=== PATIENT | female | born 1960 | race American Indian/Alaskan Native ===

== ENCOUNTER 2021-08-29 13:55 | Inpatient (IN) | payer MEDICARE ==
[2021-08-29] MEDS: INSULIN GLARGINE 100 UNITS/ML SUB-Q SCH (01:30)
[2021-08-29] MEDS ORDERED: DEXTROSE 50% IN WATER (25GM) 50 ML SYRINGE IV PRN (16:20)
[2021-08-29] MEDS ORDERED: ACETAMINOPHEN 325 MG TAB PO PRN (16:20)
[2021-08-29] MEDS ORDERED: oxyCODONE /ACETAMINOPHEN 5-325MG TAB PO PRN (16:20)
[2021-08-29] MEDS ORDERED: POLYETHYLENE GLYCOL 3350 17 GM POWDER PO PRN (16:30)
[2021-08-29] MEDS ORDERED: hydrALAZINE 20 MG/1 ML INJ IV PRN (16:30)
[2021-08-29] MEDS ORDERED: ONDANSETRON 4 MG ODT TAB PO PRN (16:30)
--- NOTE | 2021-08-29 16:38 | History and Physical Report ---
History of Present Illness Date: 08/29/21 Date of admission: 08/29/2021 Chief Complaint: L BKA History of present illness: 61-year-old female who presented with a diabetic left foot infection which was blistered and having purulent discharge. Patient was admitted and worked up. 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 Dov Bonner. Antibiotics were started. On she underwent a definitive left below the knee amputation with Dr. Dov Bonner. Antibiotics were continued for 3 days post BKA per infectious disease. Her hemoglobin dropped to 5.5 and she was transfused 2 units of packed red blood cells. Hemoglobin is currently at 8.1. Couple days ago prior to admission to rehab her WBCs were elevated at 12.2 which was significantly increased from prior. She also had a slight fever. Recheck of labs prior to admission to rehab show that WBCs have normalized and she has not had another episode of fever. Hemoglobin has improved and stabilized. We will continue to monitor these while she is on the inpatient rehab unit. Unf ortunately prior to admission the patient was not compliant with diabetes management and her hemoglobin A1c was 11.9. During her evaluation I spent roughly 60 minutes with the patient discussing diabetes management, wound care and management, wound healing with diabetes, amputation prognosis, desensitization for phantom pain, timeline and prognosis for obtaining a prosthetic limb and the therapy required to start utilizing the prosthetic limb. We also discussed in detail the requirements for her starting on the acute rehab and the intensity of the program. Patient was agreeable and looking forward to starting so that she could improve and return home. Previously the patient was living in a hotel alone, she will be going back to live with family after discharge. In total, greater than 75 minutes was invested in patient care today with greater than 50% of that time utilize counseling and coordinating care. After the patient was medically stabilized she was transferred for participation in acute inpatient intensive rehabilitation program. Past History Past Medical History: diabetes Past Surgical History: Other (Left BKA) Social history: Lives alone Family history: CAD, diabetes, hypertension, stroke Medications and Allergies Allergies Allergy/AdvReac Type Severity Reaction Status Date / Time No Known Allergies Allergy Verified 08/14/21 15:15 Home Medications Medication Instructions Recorded Confirmed Last Taken Type No Known Home Medications [No 08/17/21 08/17/21 Unknown History Reported Home Medications] Active Meds: Active Medications Acetaminophen (Acetaminophen 325 Mg Tab) 650 mg PO Q6H PRN PRN Reason: Pain MILD(1-3)/Fever >100.5/[place] Bisacodyl (Bisacodyl 10 Mg Rect Supp) 10 mg AL QDAY PRN PRN Reason: Constipation Dextrose (Dextrose 50% In Water (25gm) 50 Ml Syringe) 50 ml IV Q30MIN PRN; Protocol PRN Reason: Hypoglycemia Docusate Sodium (Docusate Sodium 100 Mg Cap) 100 mg PO BID LOS Enoxaparin Sodium (Enoxaparin 40 Mg/0.4 Ml Inj) 40 mg SUB-Q QDAY LOS Famotidine (Famotidine 20 Mg Tab) 20 mg PO QDAY LOS Hydralazine HCl (Hydralazine 20 Mg/1 Ml Inj) 10 mg IV Q4HR PRN PRN Reason: Hypertension Insulin Human Lispro (Insulin Lispro 100 Unit/Ml) 0 unit SUB-Q ACHS LOS; Protocol Ondansetron HCl (Ondansetron 4 Mg Odt Tab) 4 mg PO Q8H PRN PRN Reason: Nausea And Vomiting Oxycodone/Acetaminophen (Oxycodone /Acetaminophen 5-325mg Tab) 1 tab PO Q6H PRN PRN Reason: Pain, Moderate (4-6) Polyethylene Glycol (Polyethylene Glycol 3350 17 Gm Powder) 17 gm PO QDAY PRN PRN Reason: Constipation Review of Systems All systems: negative (ROS negative for 10 systems except as noted below with pertinent positives and negatives.) Constitutional: fever, no weight loss, no weight gain, no chills Ears, nose, mouth and throat: no decreased hearing, no dysphagia Cardiovascular: no chest pain, no rapid/irregular heart beat, no edema Respiratory: no cough, no shortness of breath Gastrointestinal: no abdominal pain, no nausea, no vomiting, no diarrhea Musculoskeletal: no arm numbness/tingling, no low back pain, no leg numbness/tingling Integumentary: wounds, no pruritis Neurological: parathesias, no paralysis, no weakness Psychiatric: no anxiety, no insomnia Endocrine: no polydipsia Exam - Exam Narrative exam: MUSCULOSKELETAL SPECIALTY EXAM CONSTITUTIONAL: Well developed, well nourished, appropriately groomed LYMPHATIC: No appreciable abnormalities palpable in neck RESPIRATORY: Clear to auscultation bilaterally, no increased work of breathing CARDIOVASCULAR: Regular Rate/ Rhythm, no swelling, edema or tenderness in BUE or BLE. Pulses palpable in all extremities. All extremities warm. GI: + bowel sounds, soft, NTTP, nondistended. INTEGUMENTARY: Wound on lateral and medial right foot, surgical wound clean dry and intact with scant drainage at lateral pole serosanguineous in nature. Normal, no lesion, rash, masses or bruising noted in extremities. MUSCULOSKELETAL: Left BKA, otherwise BUE and BLE normal without defect, crepitus, subluxation, effusion, arthritic changes or TTP. BUE 4+/5, good ROM, with normal tone. BLE 4/5 good ROM, with normal tone NEURO: CN 2-12 grossly intact. Sensation intact in all extremities. Reflexes 2+ bilaterally at biceps, brachioradialis and R patella. No clonus at ankle. Coordination intact in BUE. No tremor noted in 4 extremities. POSTURE and GAIT: Sitting posture good. Balance and gait deferred until seen with therapy. PSYCH: Alert, oriented x3, affect appears normal. Insight appears intact. - Constitutional Vitals: 98.5, 87, 18, 100%, 138/67 Assessment and Plan Assessment and plan: Patient was assessed and evaluated for Acute Inpatient Rehab Unit. Due to the patients above-mentioned medical complexity, along with decreased functional mobility and self care, this patient continues to require and be appropriate for a comprehensive, multidisciplinary [id number] rehabilitati on program. These needs cannot be met in an outpatient or other less intensive setting. The patient would continue to benefit from skilled therapy intervention for at least 3 hours per day, five days a week, with techniques specific to the needs of the patient to improve function, activities of daily living, and reintegration into the community. The patient continues to require: -- OT to improve ROM, self-care, and learn use of adaptive equipment -- PT to improve strength and balance, functional transfers, and ambulation with energy conservation techniques to improve functional mobility -- MANAGER OF CUSTOMER BILLING to address cognitive deficits and swallowing ability -- 24 hour RN to ensure and prevent skin breakdown, promote progressive independence while ensuring safety, ensure education regarding medications, and incorporation of the rehabilitation at the bedside -- 24 hour Utilization Management Manager to coordinate this interdisciplinary program, and to manage/prevent complications as a result of the patients medical comorbidities. -Plan of care by day 4 -Weekly team conferences With such a program, there is a reasonable certainty that the goals individualized for this patient can be achieved within the specified length of stay. Left BKA: Patient needs residual limb protector, will contact [facility] for delivery. Continue dressing changes every other day and monitor for any signs of increased drainage, infection or wound dehiscence. Counseled patient on prognosis and timeline for recovery as well as obtaining a prosthesis. Follow- up with surgeon for staple removal Diabetes: Patient continues on carb controlled diet and sliding scale insulin. We will look to attempt to start scheduled insulin based on her usage while she is in-house. Have discussed counseling with dietary choices. Have also discussed issues with wound healing and the importance of monitoring her right foot for any wounds and to have those treated as soon as possible if they should develop. Phantom sensation: Continue working with desensitization, will refrain from starting gabapentin currently as the patient is not having acute neuropathic pain but will look to utilize that if needed in the future. ADL dysfunction: OT will work on improving ability to perform ADLs (including assistive devices) to increase independence and decrease caregiver burden and improve functional transfers and mobility training. Difficulty walking: PT will work on gait training and proper use of assistive devices and advance as appropriate to use of stairs and outside ambulation on uneven surfaces. Unsteadiness on feet: PT will work on improving static and dynamic sitting and standing balance as well as proper use of assistive devices to decrease risk of falls. Abnormality of gait: PT will work to improve safety and efficiency of gait through neuromotor training and gait training along with instruction on proper use of assistive devices. Muscle weakness: PT & OT will work on strengthening exercises to improve functional strength including mixture of closed and open kinetic chain exercises. Debility: PT & OT will work on improving overall functional status to improve participation with ADLs, mobility and social involvement. Fatigue: PT & OT will work on improving endurance through aerobic exercises and therapeutic activity while monitoring patients tolerance for activity and vital signs as needed. DVT ppx: Patient's renal function has been acceptable, will change her to Lovenox Pain: Continue physical modalities in therapy and pain medications as needed to achieve functional pain control. Sleep: Monitor and address as needed. Bowel: Monitor and address as needed. Appetite: Monitor and address as needed. Discharge planning: Pending therapy progress and care plan meeting. Will continue discussion with therapy team, SW, patient and family. Restrictions/ Precautions: Falls, wound complication WB status: FWB on RLE, NWB on LLE Functional Hx: ADLs: Independent but went downhill recently with the infection Cognition: Independent Mobility: No AD previously but was crawling around with the infection Barriers to Discharge: Decreased mobility and ability to perform self care, balance deficits, weakness Estimated Length of Stay: 10-14 days Discharge Destination: Home with family Patient has undergone a left BKA and thus cannot safely stand to perform MR ADLs safely with any device. She will need a wheelchair at discharge. She is capable of utilizing the wheelchair and has expressed no contraindications to utilizing the wheelchair in the home environment. We will continue to work with her to improve her ability to mobilize herself in the wheelchair in order to provide her greater independence with performing her MRADLs. POST ADMISSION PHYSICIAN EVALUATION I have examined the patient and find that functional status, medical condition and appropriateness for IRF admission are essentially unchanged from those described in the preadmission screening. Will monitor for worsening wounds, surgical wound dehiscence/infection, need for prosthetics and residual limb protector, phantom sensation/pain, DVT/PE, bowel and bladder complications and complications due to diabetes, questionable hypertension and electrolyte abnormalities. Will attempt to avoid occurrence of these issues or treat them if they present themselves.
[2021-08-29] MEDS: DOCUSATE SODIUM 100 MG CAP PO SCH (22:38)
[2021-08-30] MEDS: INSULIN LISPRO 100 UNIT/ML SUB-Q SCH ×7 (01:30→21:19)
[2021-08-30] MEDS: INSULIN GLARGINE 100 UNITS/ML SUB-Q SCH ×2 (01:30→21:20)
[2021-08-30 05:08] LABS: Basophils # (Auto) 0.1 K/mm3 (0.0-0.1); Eosinophils # (Auto) 0.1 K/mm3 (0.0-0.4); Hematocrit 22.6 % (30.3-42.9); Hemoglobin 7.3 gm/dl (10.1-14.3); Lymphocytes # (Auto) 1.2 K/mm3 (1.2-5.4); Lymphocytes % (Auto) 16.1 % (13.4-35.0); Mean Corpuscular HGB Conc 32 % (30-34); Mean Corpuscular Volume 87 fl (79-97); Monocytes # (Auto) 0.5 K/mm3 (0.0-0.8); Monocytes % (Auto) 7.2 % (0.0-7.3); Platelet Count 230 K/mm3 (140-440); Red Cell Distribution Width 17.5 % (13.2-15.2)
[2021-08-30 05:22] LABS: Alanine Aminotransferase 16 units/L (7-56); Albumin 2.2 g/dL (3.9-5); Blood Urea Nitrogen 24 mg/dL (7-17); Calcium 8.3 mg/dL (8.4-10.2); Hemolysis Index 0
[2021-08-30 05:54] LABS: BUN/Creatinine Ratio 34
[2021-08-30] MEDS: ENOXAPARIN 40 MG/0.4 ML INJ SUB-Q SCH ×2 (08:30→11:40)
[2021-08-30] MEDS: FAMOTIDINE 20 MG TAB PO SCH ×2 (08:30→11:40)
[2021-08-30] MEDS: DOCUSATE SODIUM 100 MG CAP PO SCH ×2 (11:40→21:28)
[2021-08-31] MEDS: INSULIN LISPRO 100 UNIT/ML SUB-Q SCH ×5 (09:44→21:42)
[2021-08-31] MEDS: ENOXAPARIN 40 MG/0.4 ML INJ SUB-Q SCH (09:45)
[2021-08-31] MEDS: FAMOTIDINE 20 MG TAB PO SCH ×2 (09:45→09:46)
[2021-08-31] MEDS: DOCUSATE SODIUM 100 MG CAP PO SCH ×2 (09:46→21:43)
--- NOTE | 2021-08-31 11:48 | Event Note ---
Date: 08/31/21 BUN/Cr still elevated, will give gentle IVF and recheck BMP in AM. Hgb seems to be trending down, recheck in AM. BP continues to have episodes of elevation, monitor and look to possibly start antihypertensive. GLU seems a little better on scheduled Lantus, monitor and adjust.
[2021-08-31] MEDS ORDERED: SODIUM CHLORIDE 0.9% 1000 ML 1,000 ML IV SCH (12:40)
[2021-08-31] MEDS ORDERED: LOPERAMIDE 2 MG CAP PO PRN (15:07)
[2021-08-31] MEDS: INSULIN GLARGINE 100 UNITS/ML SUB-Q SCH (21:42)
[2021-09-01 07:58] LABS: Blood Urea Nitrogen 20 mg/dL (7-17); Calcium 8.3 mg/dL (8.4-10.2); Hemolysis Index 0
[2021-09-01 08:07] LABS: BUN/Creatinine Ratio 33
[2021-09-01 08:13] LABS: Hematocrit 23.4 % (30.3-42.9); Hemoglobin 7.6 gm/dl (10.1-14.3); Mean Corpuscular HGB Conc 33 % (30-34); Mean Corpuscular Volume 88 fl (79-97); Platelet Count 224 K/mm3 (140-440); Red Blood Count 2.66 M/mm3 (3.65-5.03); Red Cell Distribution Width 18.6 % (13.2-15.2)
--- NOTE | 2021-09-01 08:36 | IRU Plan of Care ---
Interdisciplinary Plan of Care - IPOC IRU INTERDISCIPLINARY PLAN: [facility] Inpatient Rehab Unit Plan of Care IRU Interdisciplinary Care Plan Start: 08/30/21 12:16 Freq: Status: Active Protocol: Document 08/31/21 15:40 TH (Rec: 08/31/21 15:42 TH [id number]) IRU Interdisciplinary Care Plan Therapy Services Therapy Services Will Include: Physical Therapy,Occupational Query Text:Patient will be seen for a Therapy minimum of 3 hours of daily therapy 5 out of 7 days a week. Therapy intensity may be adjusted within a 7 consecutive day period to effectively serve the individual needs of the patient. Treatment Frequency/Intensity/Duration Treatment Frequency 5x/week Treatment Intensity 3 hours per day Treatment Duration 7-10 days Problem Area: Eating/Swallowing Eating/Swallowing Outcomes Eating/Swallowing Interventions Problem Area: Bathing/Grooming Bathing/Grooming Outcomes Improve [place] w/ Bathing Bathing/Grooming Interventions ADL Training,Use of Assistive Devices,Therapeutic Exercise, Therapeutic Activity,Balance Work,Activity Tolerance Work, Patient/Caregiver Education Problem Area: Dressing Dressing Outcomes Improve [place] w/ UB Dressing,Improve [place] w/ LB Dressing Dressing Outcomes Improve [place] w/ UB Dressing,Improve [place] w/ LB Dressing Problem Area: Mobility Mobility Outcomes Improve [place] w/ Bed Mobility,Improve [place] w/ Ambulation,Improve [place] w/ Wheelchair Mobility Interventions Therapeutic Exercise, Neuromuscular Re-Ed.,Use of Assistive Devices,Patient/ Caregiver Education,Gait Training,W/C Mobility Work Problem Area: Transfers Transfers Outcomes Improve [place] w/ Bed Transfers,Improve [place] w/ Toilet Transfers,Improve [place] w/ Tub/Shower Transfers,Improve [place] w/ Car Transfers Transfers Interventions Transfer Training,Therapeutic Exercise,Neuromuscular Re- Education,Activity Tolerance Work,Use of Assistive Devices, Patient/Caregiver Education Problem Area: Bowel/Bladder Managment Bowel/Bladder Outcomes Continent of Bladder,Continent of Bowel,Remain free of UTI Bowel/Bladder Interventions Bladder Training Program,Bowel Training Program,Patient/ Caregiver Education Problem Area: Toileting Toileting Outcomes Improve [place] w/ Toileting Toileting Interventions ADL Training,Balance Work,Use of Assistive Devices,Patient/ Caregiver Education Problem Area: Nutrition Nutrition Outcomes Nutrition Interventions Problem Area: Comprehension Comprehension Outcomes Comprehension Interventions Problem Area: Expression Expression Outcomes Expression Interventions Problem Area: Problem Solving Problem Solving Outcomes Problem Solving Interventions Problem Area: Memory Memory Outcomes Memory Interventions Problem Area: Pain Management Pain Management Outcomes Demonstrate/Verbalize Pain Strategies Pain Management Interventions Medication Management,Use of Devices/Modalities (TENS, hot pack, cold pack, etc.), Positioning/Turning,Patient/ Caregiver Education Problem Area: Knowledge Deficits Knowledge Deficits Outcomes Verbalize Precautions Knowledge Deficits Interventions Disease/Injury/Sx. Intervention Education, Medication Use Education,Body Mechanics/Joint Protection Education,Disease Management Education,Health Maintainence Education,Safety Education, Energy Conservation Education Problem Area: Skin/Tissue Integrity Skin/Tissue Integrity Outcomes Exhibit Healing of Wound/ Incision,Demonstrate Understanding of Pressure Relief,Demonstrate Understanding of Self Wound Care Skin/Tissue Integrity Interventions Skin/Wound Care,Positioning/ Turning Problem Area: Social Interaction Social Interaction Outcomes Social Interaction Interventions Problem Area: Adjustment to Disability Adjustment to Disability Outcomes Adjustment to Disability Interventions Problem Area: Discharge Concerns Discharge Concerns Outcomes Discharge w/ Necessary Equipment,Have Home Health/ Outpatient Services Discharge Concerns Interventions Discharge Planning,Equipment Assessment, Acquisition and Placement,Family/Caregiver Training Problem Area: Community Reintegration Community Reintegration Outcomes Community Reintegration Interventions Problem Area: Home Management Home Management Outcomes Improve [place] w/ Home Management Home Management Interventions Meal Preparation,Clothing Care ,Activity Tolerance Work, Patient/Caregiver Education Problem Area: Safety Safety Outcomes Provide Safe Environment Safety Interventions Identify Fall Risk,[place] Pt. to Environment,Reduce Environmental Hazards Problem Area: Medication Education Medication Education Outcomes Patient/Caregiver will Verbalize Understanding of Medications Medication Education Interventions Explain Administration/Side Effects/Interactions Problem Area: Diabetes Education Diabetes Education Outcomes Demonstrate Knowledge of Resources Availlable in Diabetic Ed. Folder Diabetes Education Interventions Discuss Pathophysiology of Diabetes Problem Area: Oxygenation Oxygenation Outcomes Oxygenation Interventions Problem Area: Cardiovascular Cardiovascular Outcomes Cardiovascular Interventions Physician Only Medical Prognosis and Rehabilitation Good rehab potential, good medical prognosis Potential (Completed by Physician) Interdisciplinary Problem List Interdisciplinary Problem List Interdisciplinary Problem List Impaired Bathing/Grooming, Query Text:Answers will Trigger Problems Impaired Dressing,Impaired and Outcomes on Worklist. Mobility,Impaired Transfers, Impaired Bladder/Bowel Management,Impaired Toileting, Pain Management,Impaired Skin/ Tissue Integrity,Adjustment to Disability,Discharge Concerns ,Impaired Home Management, Impaired Safety,Medications Education,Diabetes Education This plan of care has been developed based on the findings from the pre- admission assessment, post admission physician evaluation, information gathered from the assessments from all therapy disciplines and other pertinent clinicians. The plan of care has been reviewed and discussed in collaboration with the interdisciplinary team. The plan of care will be reviewed and updated at least weekly.
--- NOTE | 2021-09-01 08:42 | Progress Note ---
Subjective Date of service: 09/01/21 Principal diagnosis: L BKA Interval history: 61-year-old female who presented with a diabetic left foot infection which was blistered and having purulent discharge. Patient was admitted and worked up. 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 Dov Bonner. Antibiotics were started. On she underwent a definitive left below the knee amputation with Dr. Dov Bonner. Antibiotics were continued for 3 days post BKA per infectious disease. Her hemoglobin dropped to 5.5 and she was transfused 2 units of packed red blood cells. Hemoglobin is currently at 8.1. Couple days ago prior to admission to rehab her WBCs were elevated at 12.2 which was significantly increased from prior. She also had a slight fever. Recheck of labs prior to admission to rehab show that WBCs have normalized and she has not had another episode of fever. Hemoglobin has improved and stabilized. We will continue to monitor these while she is on the inpatient rehab unit. Unfortunately prior to admission the patient was not compliant with diabetes management and her hemoglobin A1c was 11.9. During her evaluation I spent roughly 60 minutes with the patient discussing diabetes management, wound care and management, wound healing with diabetes, amputation prognosis, desensitization for phantom pain, timeline and prognosis for obtaining a prosthetic limb and the therapy required to start utilizing the prosthetic limb. We also discussed in detail the requirements for her starting on the acute rehab and the intensity of the program. Patient was agreeable and looking forward to starting so that she could improve and return home. Previously the patient was living in a hotel alone, she will be going back to live with family after discharge. In total, greater than 75 minutes was invested in patient care today with greater than 50% of that time utilize counseling and coordinating care. After the patient was medically stabilized she was transferred for participation in acute inpatient intensive rehabilitation program. Interval History: Patient is participating in therapy and making reasonable progress. Taking rest breaks as needed. +BM, slowing down some as the patient was having multiple loose stools previously, Imodium available. Denies uncontrolled pain, palpitations, dyspnea, cough, N/V, or joint pain. Left BKA: Continue to monitor, clean dry and intact currently. No signs of wound dehiscence or infection Right foot wound: Continue to change dressing daily and monitor for any signs of worsening infection. Appears stable currently Diabetes: Patient tolerating low-dose of Lantus, have reduced sliding scale insulin. Discussed diabetes and importance of checking her skin for wounds going forward and adhering to a controlled carbohydrate and insulin regimen. A1c at admission was 11.9 Borderline hypertension: Patient having episodes periodically of hypertension but is normally well within limits. Discussing this with the patient it seems that she does get anxious at times and this might be part of the issue. Did discuss with her that we will look to start an antihypertensive if she continues to have elevations and I cannot find another cause for it. Volume depletion: Gentle IV fluids started with good results. Encouraged the patient to continue drinking plenty of water. Will monitor Anemia, combined acute blood loss and chronic disease: Combination of chronic disease and acute blood loss. Labs reviewed from acute care side. May add a B12 and folate to her next set of labs that we obtain. ADL and mobility deficits: Continue working with therapy to improve patient's ability to perform mobility and ADLs as independently as possible. She is utilizing a sliding board transfer to the wheelchair and is able to mobilize herself in the wheelchair. Working on the ability to be able to perform a stand pivot transfer and hopefully will do that over the next couple of days followed by taking steps in the parallel bar and then with a rolling walker. All records, vitals, labs and medications were reviewed. No other issues per patient, nursing or therapy. In total, greater than 37 minutes was invested in patient care today with greater than 20 minutes of that time counseling the patient on her medical conditions and prognosis of her condition as well as expectations for discharge. Objective - Exam Narrative Exam: MUSCULOSKELETAL SPECIALTY EXAM CONSTITUTIONAL: Well developed, well nourished, appropriately groomed RESPIRATORY: Clear to auscultation bilaterally, no increased work of breathing CARDIOVASCULAR: Regular Rate/ Rhythm, no swelling, edema or tenderness in BUE or BLE. All extremities warm. GI: + bowel sounds, soft, NTTP, nondistended. INTEGUMENTARY: Wound on lateral and medial right foot, surgical wound clean dry and intact with scant drainage at lateral pole, serosanguineous in nature. Otherwise normal, no lesion, rash, masses or bruising noted in extremities. MUSCULOSKELETAL: Left BKA, otherwise BUE and BLE normal without defect, crepitus, subluxation, effusion, arthritic changes or TTP. BUE 4+/5, good ROM, with normal tone. BLE 4/5 good ROM, with normal tone NEURO: CN 2-12 grossly intact. Sensation intact in all extremities. Coordination intact in BUE. No tremor noted in 4 extremities. POSTURE and GAIT: Sitting posture good. Balance and gait deferred until seen with therapy. PSYCH: Alert, oriented x3, affect appears normal. Insight appears intact. - Constitutional Vitals: Vital Signs - 12hr 08/31/21 09/01/21 22:50 08:16 Temperature 97.9 F Pulse Rate 82 Respiratory 16 Rate Blood Pressure 139/69 O2 Sat by Pulse 98 98 Oximetry - Allied health notes Allied health notes reviewed: nursing, PT, OT - Labs CBC & Chem 7: 09/01/21 07:19 09/01/21 07:19 Labs: Laboratory Results - last 72 hr 08/30/21 08/30/21 08/30/21 04:19 04:19 07:23 WBC 7.5 RBC 2.60 L Hgb 7.3 L Hct 22.6 L MCV 87 MCH 28 MCHC 32 RDW 17.5 H Plt Count 230 Lymph % (Auto) 16.1 [place] % (Auto) 7.2 Eos % (Auto) 1.0 Baso % (Auto) 1.0 Lymph # (Auto) 1.2 [place] # (Auto) 0.5 Eos # (Auto) 0.1 Baso # (Auto) 0.1 Seg Neutrophils % 74.7 H Seg Neutrophils # 5.6 Sodium 142 Potassium 4.3 Chloride 106.4 Carbon Dioxide 29 Anion Gap 11 BUN 24 H Creatinine 0.7 Estimated GFR > 60 BUN/Creatinine Ratio 34 Glucose 181 H POC Glucose 156 H Calcium 8.3 L Total Bilirubin 0.20 AST 16 ALT 16 Alkaline Phosphatase 81 Total Protein 7.1 Albumin 2.2 L Albumin/Globulin Ratio 0.4 08/30/21 08/30/21 08/30/21 12:00 16:25 21:17 WBC RBC Hgb Hct MCV MCH MCHC RDW Plt Count Lymph % (Auto) [place] % (Auto) Eos % (Auto) Baso % (Auto) Lymph # (Auto) [place] # (Auto) Eos # (Auto) Baso # (Auto) Seg Neutrophils % Seg Neutrophils # Sodium Potassium Chloride Carbon Dioxide Anion Gap BUN Creatinine Estimated GFR BUN/Creatinine Ratio Glucose POC Glucose 155 H 163 H 168 H Calcium Total Bilirubin AST ALT Alkaline Phosphatase Total Protein Albumin Albumin/Globulin Ratio 07/03/22 07/03/22 07/03/22 08:31 11:57 16:07 WBC RBC Hgb Hct MCV MCH MCHC RDW Plt Count Lymph % (Auto) [place] % (Auto) Eos % (Auto) Baso % (Auto) Lymph # (Auto) [place] # (Auto) Eos # (Auto) Baso # (Auto) Seg Neutrophils % Seg Neutrophils # Sodium Potassium Chloride Carbon Dioxide Anion Gap BUN Creatinine Estimated GFR BUN/Creatinine Ratio Glucose POC Glucose 88 151 H 173 H Calcium Total Bilirubin AST ALT Alkaline Phosphatase Total Protein Albumin Albumin/Globulin Ratio 08/31/21 09/01/21 09/01/21 21:04 07:19 07:19 WBC 4.9 RBC 2.66 L Hgb 7.6 L Hct 23.4 L MCV 88 MCH 29 MCHC 33 RDW 18.6 H Plt Count 224 Lymph % (Auto) [place] % (Auto) Eos % (Auto) Baso % (Auto) Lymph # (Auto) [place] # (Auto) Eos # (Auto) Baso # (Auto) Seg Neutrophils % Seg Neutrophils # Sodium 140 Potassium 3.9 Chloride 104.6 Carbon Dioxide 29 Anion Gap 10 BUN 20 H Creatinine 0.6 Estimated GFR > 60 BUN/Creatinine Ratio 33 Glucose 80 POC Glucose 160 H Calcium 8.3 L Total Bilirubin AST ALT Alkaline Phosphatase Total Protein Albumin Albumin/Globulin Ratio 09/01/21 08:14 WBC RBC Hgb Hct MCV MCH MCHC RDW Plt Count Lymph % (Auto) [place] % (Auto) Eos % (Auto) Baso % (Auto) Lymph # (Auto) [place] # (Auto) Eos # (Auto) Baso # (Auto) Seg Neutrophils % Seg Neutrophils # Sodium Potassium Chloride Carbon Dioxide Anion Gap BUN Creatinine Estimated GFR BUN/Creatinine Ratio Glucose POC Glucose 76 Calcium Total Bilirubin AST ALT Alkaline Phosphatase Total Protein Albumin Albumin/Globulin Ratio Assessment and Plan Left BKA: Patient needs residual limb protector, will contact [facility] for delivery. Continue dressing changes every other day and monitor for any signs of increased drainage, infection or wound dehiscence. Counseled patient on prognosis and timeline for recovery as well as obtaining a prosthesis. Follow- up with surgeon for staple removal Diabetes: Patient continues on carb controlled diet and sliding scale insulin. Have discussed counseling with dietary choices. Have also discussed issues with wound healing and the importance of monitoring her right foot for any wounds and to have those treated as soon as possible if they should develop. Have started long-acting insulin and reduce the dose of the sliding scale. Will monitor and attempt to control her glucose as closely as possible. Right foot wound, diabetic and traumatic in nature: Continue wound care with dressing changes daily, monitor for any signs of infection or need to start antibiotics. Have counseled the patient to closely monitor this wound as well as any future wounds due to the high risk of her obtaining another amputation with diabetes and new foot wound. Phantom sensation: Continue working with desensitization, will refrain from starting gabapentin currently as the patient is not having acute neuropathic pain but will look to utilize that if needed in the future. Anemia: Appears to be anemia of chronic disease and acute blood loss mixed. She is normocytic. Labs from the acute care side on 08/25 show that the iron is within normal limits at 51, TIBC slightly low at 218 and ferritin elevated at 436. We will add a vitamin B12 and folate with our next blood draw Volume depletion: Responded well to 1 L of gentle IV fluids. We will continue to monitor the patient's intake and look to repeat IV fluids if needed. Did encourage her to continue drinking water. ADL dysfunction: OT will work on improving ability to perform ADLs (including assistive devices) to increase independence and decrease caregiver burden and improve functional transfers and mobility training. Difficulty walking: PT will work on gait training and proper use of assistive devices and advance as appropriate to use of stairs and outside ambulation on uneven surfaces utilizing a rolling walker and safety awareness due to left BKA. Unsteadiness on feet: PT will work on improving static and dynamic sitting and standing balance as well as proper use of assistive devices to decrease risk of falls, have discussed with patient the likelihood that she will fall due to f orgetting that she has a left BKA and getting up . Abnormality of gait: PT will work to improve safety and efficiency of gait through neuromotor training and gait training along with instruction on proper use of assistive devices. Will need further training once patient receives left prosthesis Muscle weakness: PT & OT will work on strengthening exercises to improve functional strength including mixture of closed and open kinetic chain exercises. Debility: PT & OT will work on improving overall functional status to improve participation with ADLs, mobility and social involvement. Fatigue: PT & OT will work on improving endurance through aerobic exercises and therapeutic activity while monitoring patients tolerance for activity and vital signs as needed. DVT ppx: Patient's renal function has been acceptable, will change her to Lovenox Pain: Continue physical modalities in therapy and pain medications as needed to achieve functional pain control. Sleep: Monitor and address as needed. Bowel: Monitor and address as needed. Appetite: Monitor and address as needed. Discharge planning: Pending therapy progress and care plan meeting. Will continue discussion with therapy team, SW, patient and family. Restrictions/ Precautions: Falls, wound complication WB status: FWB on RLE, NWB on LLE Functional Hx: ADLs: Independent but went downhill recently with the infection Cognition: Independent Mobility: No AD previously but was crawling around with the infection Barriers to Discharge: Decreased mobility and ability to perform self care, balance deficits, weakness Estimated Length of Stay: 10-14 days Discharge Destination: Home with family Patient has undergone a left BKA and thus cannot safely stand to perform MR ADLs safely with any device. She will need a wheelchair at discharge. She is capable of utilizing the wheelchair and has expressed no contraindications to utilizing the wheelchair in the home environment. We will continue to work with her to improve her ability to mobilize herself in the wheelchair in order to provide her greater independence with performing her MRADLs.
[2021-09-01] MEDS: INSULIN LISPRO 100 UNIT/ML SUB-Q SCH ×4 (09:03→22:00)
[2021-09-01] MEDS: FAMOTIDINE 20 MG TAB PO SCH ×2 (09:04→09:14)
[2021-09-01] MEDS: ENOXAPARIN 40 MG/0.4 ML INJ SUB-Q SCH (09:04)
[2021-09-01] MEDS: INSULIN GLARGINE 100 UNITS/ML SUB-Q SCH (22:00)
[2021-09-02] MEDS: FAMOTIDINE 20 MG TAB PO SCH ×2 (07:36→10:27)
[2021-09-02] MEDS: INSULIN LISPRO 100 UNIT/ML SUB-Q SCH ×4 (08:10→22:43)
[2021-09-02] MEDS: ENOXAPARIN 40 MG/0.4 ML INJ SUB-Q SCH (10:29)
--- NOTE | 2021-09-02 12:02 | Progress Note ---
Subjective Date of service: 09/02/21 Principal diagnosis: L BKA Interval history: 61-year-old female who presented with a diabetic left foot infection which was blistered and having purulent discharge. Patient was admitted and worked up. 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 Dov Bonner. Antibiotics were started. On she underwent a definitive left below the knee amputation with Dr. Dov Bonner. Antibiotics were continued for 3 days post BKA per infectious disease. Her hemoglobin dropped to 5.5 and she was transfused 2 units of packed red blood cells. Hemoglobin is currently at 8.1. Couple days ago prior to admission to rehab her WBCs were elevated at 12.2 which was significantly increased from prior. She also had a slight fever. Recheck of labs prior to admission to rehab show that WBCs have normalized and she has not had another episode of fever. Hemoglobin has improved and stabilized. We will continue to monitor these while she is on the inpatient rehab unit. Unfortunately prior to admission the patient was not compliant with diabetes management and her hemoglobin A1c was 11.9. During her evaluation I spent roughly 60 minutes with the patient discussing diabetes management, wound care and management, wound healing with diabetes, amputation prognosis, desensitization for phantom pain, timeline and prognosis for obtaining a prosthetic limb and the therapy required to start utilizing the prosthetic limb. We also discussed in detail the requirements for her starting on the acute rehab and the intensity of the program. Patient was agreeable and looking forward to starting so that she could improve and return home. Previously the patient was living in a hotel alone, she will be going back to live with family after discharge. In total, greater than 75 minutes was invested in patient care today with greater than 50% of that time utilize counseling and coordinating care. After the patient was medically stabilized she was transferred for participation in acute inpatient intensive rehabilitation program. Interval History: Patient is participating in therapy and making slow progress. Taking rest breaks as needed. +BM, slowing down some as the patient was having multiple loose stools previously, Imodium available. Patient is currently having incontinent episodes both bowel and bladder. Is not wanting to transfer to the commode but is instead requesting to use bedpan. Denies uncontrolled pain, palpitations, dyspnea, cough, N/V, or joint pain. Left BKA: Continue to monitor, clean dry and intact currently. No signs of wound dehiscence or infection Right foot wound: Continue to change dressing daily and monitor for any signs of worsening infection. Appears stable currently Diabetes: Patient tolerating low-dose of Lantus, have reduced sliding scale insulin. Discussed diabetes and importance of checking her skin for wounds going forward and adhering to a controlled carbohydrate and insulin regimen. A1c at admission was 11.9 Borderline hypertension: Patient having episodes periodically of hypertension but is normally well within limits. Reasonable blood pressure today. Did discuss with her that we will look to start an antihypertensive if she continues to have elevations and I cannot find another cause for it. Volume depletion: Gentle IV fluids with good results. Encouraged the patient to continue drinking plenty of water. Will monitor, recheck labs tomorrow Anemia, combined acute blood loss and chronic disease: Combination of chronic disease and acute blood loss. Labs reviewed from acute care side. May add a B12 and folate to her next set of labs that we obtain. ADL and mobility deficits: Continue working with therapy to improve patient's ability to perform mobility and ADLs as independently as possible. She is utilizing a sliding board transfer to the wheelchair and is able to mobilize herself in the wheelchair. Working on the ability to be able to perform a stand pivot transfer and hopefully will do that over the next couple of days followed by taking steps in the parallel bar and then with a rolling walker. All records, vitals, labs and medications were reviewed. No other issues per patient, nursing or therapy. Discussed during team conference. Patient is making slow progress and is oftentimes wanting to think about doing things for prolonged period of time before attempting them. Peers that she does have capability of doing some of the task but we are questioning whether or not there may have been cognitive issue from before. We will continue working with the patient and we have all informed her that she will need to put forth her best effort with therapy otherwise we will be required to discharge her home or to a care home fa cility. At this point she is not able to provide for herself and would need to go to a care home facility. In total, greater than 39 minutes was invested in patient care today including greater than 50% that time counseling coordinating care with the patient, therapy and nursing. Objective - Exam Narrative Exam: MUSCULOSKELETAL SPECIALTY EXAM CONSTITUTIONAL: Well developed, well nourished, appropriately groomed RESPIRATORY: Clear to auscultation bilaterally, no increased work of breathing CARDIOVASCULAR: Regular Rate/ Rhythm, no swelling, edema or tenderness in BUE or BLE. All extremities warm. GI: + bowel sounds, soft, NTTP, nondistended. INTEGUMENTARY: Wound on lateral and medial right foot, surgical wound clean dry and intact with scant drainage at lateral pole, serosanguineous in nature. Otherwise normal, no lesion, rash, masses or bruising noted in extremities. MUSCULOSKELETAL: Left BKA, otherwise BUE and BLE normal without defect, crepitus, subluxation, effusion, arthritic changes or TTP. BUE 4+/5, good ROM, with normal tone. BLE 4/5 good ROM, with normal tone NEURO: CN 2-12 grossly intact. Sensation intact in all extremities. Coordination intact in BUE. No tremor noted in 4 extremities. POSTURE and GAIT: Sitting posture good. Balance and gait deferred until seen with therapy, currently unable to stand or ambulate. PSYCH: Alert, oriented x3, affect appears normal. Insight appears intact. - Constitutional Vitals: Vital Signs - 12hr 09/02/21 09/02/21 09/02/21 01:17 07:59 08:11 Temperature 98.6 F Pulse Rate 81 Blood Pressure 138/65 O2 Sat by Pulse 98 98 98 Oximetry - Allied health notes Allied health notes reviewed: nursing, PT, OT - Labs CBC & Chem 7: 09/01/21 07:19 09/01/21 07:19 Labs: Laboratory Results - last 72 hr 08/30/21 08/30/21 08/30/21 12:00 16:25 21:17 WBC RBC Hgb Hct MCV MCH MCHC RDW Plt Count Sodium Potassium Chloride Carbon Dioxide Anion Gap BUN Creatinine Estimated GFR BUN/Creatinine Ratio Glucose POC Glucose 155 H 163 H 168 H Calcium 08/31/21 08/31/21 08/31/21 08:31 11:57 16:07 WBC RBC Hgb Hct MCV MCH MCHC RDW Plt Count Sodium Potassium Chloride Carbon Dioxide Anion Gap BUN Creatinine Estimated GFR BUN/Creatinine Ratio Glucose POC Glucose 88 151 H 173 H Calcium 08/31/21 09/01/21 09/01/21 21:04 07:19 07:19 WBC 4.9 RBC 2.66 L Hgb 7.6 L Hct 23.4 L MCV 88 MCH 29 MCHC 33 RDW 18.6 H Plt Count 224 Sodium 140 Potassium 3.9 Chloride 104.6 Carbon Dioxide 29 Anion Gap 10 BUN 20 H Creatinine 0.6 Estimated GFR > 60 BUN/Creatinine Ratio 33 Glucose 80 POC Glucose 160 H Calcium 8.3 L 09/01/21 09/01/21 09/01/21 08:14 11:58 16:35 WBC RBC Hgb Hct MCV MCH MCHC RDW Plt Count Sodium Potassium Chloride Carbon Dioxide Anion Gap BUN Creatinine Estimated GFR BUN/Creatinine Ratio Glucose POC Glucose 76 132 H 189 H Calcium 09/01/21 09/02/21 20:56 07:40 WBC RBC Hgb Hct MCV MCH MCHC RDW Plt Count Sodium Potassium Chloride Carbon Dioxide Anion Gap BUN Creatinine Estimated GFR BUN/Creatinine Ratio Glucose POC Glucose 160 H 70 Calcium Assessment and Plan Left BKA: Patient needs residual limb protector, will contact [facility] ([facility] for delivery. Continue dressing changes every other day and monitor for any signs of increased drainage, infection or wound dehiscence. Counseled patient on prognosis and timeline for recovery as well as obtaining a prosthesis. Follow- up with surgeon for staple removal Diabetes: Patient continues on carb controlled diet and sliding scale insulin. Have discussed counseling with dietary choices. Have also discussed issues with wound healing and the importance of monitoring her right foot for any wounds and to have those treated as soon as possible if they should develop. Have started long-acting insulin and reduce the dose of the sliding scale. Will monitor and attempt to control her glucose as closely as possible. Doing better with long-acting insulin. Right foot wound, diabetic and traumatic in nature: Continue wound care with dressing changes daily, monitor for any signs of infection or need to start antibiotics. Have counseled the patient to closely monitor this wound as well as any future wounds due to the high risk of her obtaining another amputation with diabetes and new foot wound. Phantom sensation: Continue working with desensitization, will refrain from starting gabapentin currently as the patient is not having acute neuropathic pain but will look to utilize that if needed in the future. Anemia: Appears to be anemia of chronic disease and acute blood loss mixed. She is normocytic. Labs from the acute care side on 08/25 show that the iron is within normal limits at 51, TIBC slightly low at 218 and ferritin elevated at 436. We will add a vitamin B12 and folate with our next blood draw Volume depletion: Responded well to 1 L of gentle IV fluids. We will continue to monitor the patient's intake and look to repeat IV fluids if needed. Did encourage her to continue drinking water. ADL dysfunction: OT will work on improving ability to perform ADLs (including assistive devices) to increase independence and decrease caregiver burden and improve functional transfers and mobility training. Difficulty walking: PT will work on gait training and proper use of assistive devices and advance as appropriate to use of stairs and outside ambulation on uneven surfaces utilizing a rolling walker and safety awareness due to left BKA. Unsteadiness on feet: PT will work on improving static and dynamic sitting and standing balance as well as proper use of assistive devices to decrease risk of falls, have discussed with patient the likelihood that she will fall due to forgetting that she has a left BKA and getting up . Abnormality of gait: PT will work to improve safety and efficiency of gait through neuromotor training and gait training along with instruction on proper use of assistive devices. Will need further training once patient receives left prosthesis Muscle weakness: PT & OT will work on strengthening exercises to improve functional strength including mixture of closed and open kinetic chain exercises. Debility: PT & OT will work on improving overall functional status to improve participation with ADLs, mobility and social involvement. Fatigue: PT & OT will work on improving endurance through aerobic exercises and therapeutic activity while monitoring patients tolerance for activity and vital signs as needed. DVT ppx: Patient's renal function has been acceptable, will change her to Lovenox Pain: Continue physical modalities in therapy and pain medications as needed to achieve functional pain control. Sleep: Monitor and address as needed. Bowel: Monitor and address as needed. Appetite: Monitor and address as needed. Discharge planning: Pending therapy progress and care plan meeting. Will continue discussion with therapy team, SW, patient and family. Restrictions/ Precautions: Falls, wound complication WB status: FWB on RLE, NWB on LLE Functional Hx: ADLs: Independent but went downhill recently with the infection Cognition: Independent Mobility: No AD previously but was crawling around with the infection Barriers to Discharge: Decreased mobility and ability to perform self care, balance deficits, weakness Estimated Length of Stay: 10-14 days Discharge Destination: Home with family Patient has undergone a left BKA and thus cannot safely stand to perform MR ADLs safely with any device. She will need a wheelchair at discharge. She is capable of utilizing the wheelchair and has expressed no contraindications to utilizing the wheelchair in the home environment. We will continue to work with her to improve her ability to mobilize herself in the wheelchair in order to provide her greater independence with performing her MRADLs.
[2021-09-02] MEDS: INSULIN GLARGINE 100 UNITS/ML SUB-Q SCH (22:43)
--- NOTE | 2021-09-03 07:20 | Progress Note ---
Subjective Date of service: 09/03/21 Principal diagnosis: L BKA Interval history: 61-year-old female who presented with a diabetic left foot infection which was blistered and having purulent discharge. Patient was admitted and worked up. 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 Dov Bonner. Antibiotics were started. On she underwent a definitive left below the knee amputation with Dr. Dov Bonner. Antibiotics were continued for 3 days post BKA per infectious disease. Her hemoglobin dropped to 5.5 and she was transfused 2 units of packed red blood cells. Hemoglobin is currently at 8.1. Couple days ago prior to admission to rehab her WBCs were elevated at 12.2 which was significantly increased from prior. She also had a slight fever. Recheck of labs prior to admission to rehab show that WBCs have normalized and she has not had another episode of fever. Hemoglobin has improved and stabilized. We will continue to monitor these while she is on the inpatient rehab unit. Unfortunately prior to admission the patient was not compliant with diabetes management and her hemoglobin A1c was 11.9. During her evaluation I spent roughly 60 minutes with the patient discussing diabetes management, wound care and management, wound healing with diabetes, amputation prognosis, desensitization for phantom pain, timeline and prognosis for obtaining a prosthetic limb and the therapy required to start utilizing the prosthetic limb. We also discussed in detail the requirements for her starting on the acute rehab and the intensity of the program. Patient was agreeable and looking forward to starting so that she could improve and return home. Previously the patient was living in a hotel alone, she will be going back to live with family after discharge. In total, greater than 75 minutes was invested in patient care today with greater than 50% of that time utilize counseling and coordinating care. After the patient was medically stabilized she was transferred for participation in acute inpatient intensive rehabilitation program. Interval History: Patient is participating in therapy and making slow progress. Taking rest breaks as needed. +BM, slowing down some as the patient was having multiple loose stools previously, Imodium available. Patient is currently having incontinent episodes both bowel and bladder. Is not wanting to transfer to the commode but is instead requesting to use bedpan. Denies uncontrolled pain, palpitations, dyspnea, cough, N/V, or joint pain. Left BKA: Continue to monitor, clean dry and intact currently. No signs of wound dehiscence or infection Right foot wound: Continue to change dressing daily and monitor for any signs of worsening infection. Large amount of slough on the lateral wound, will start Santyl. Discussed with nursing. Wound care nurses not available currently Diabetes: Patient tolerating low-dose of Lantus, have reduced sliding scale insulin. Discussed diabetes and importance of checking her skin for wounds going forward and adhering to a controlled carbohydrate and insulin regimen. A1c at admission was 11.9. We will continue to monitor and then in the next day or so may adjust her long-acting insulin upward, may also look to start oral medication. A.M. checks have been below 90 for the most part. Borderline hypertension: Patient having episodes periodically of hypertension but is normally well within limits. More elevated values overnight and today. Did discuss with her that we will look to start an antihypertensive if she continues to have elevations and I cannot find another cause for it. Volume depletion: Gentle IV fluids with good results. Encouraged the patient to continue drinking plenty of water. Will monitor, recheck labs tomorrow Anemia, combined acute blood loss and chronic disease: Combination of chronic disease and acute blood loss. Labs reviewed from acute care side. May add a B12 and folate to her next set of labs that we obtain. Incontinence of bowel and bladder: Patient states that she has been utilizing an adult briefs for the past 6 months. ADL and mobility deficits: Continue working with therapy to improve patient's ability to perform mobility and ADLs as independently as possible. She is utilizing a sliding board transfer to the wheelchair and is able to mobilize herself in the wheelchair. Working on the ability to be able to perform a stand pivot transfer and hopefully will do that over the next couple of days followed by taking steps in the parallel bar and then with a rolling walker. All records, vitals, labs and medications were reviewed. No other issues per patient, nursing or therapy. Objective - Exam Narrative Exam: MUSCULOSKELETAL SPECIALTY EXAM CONSTITUTIONAL: Well developed, well nourished, appropriately groomed RESPIRATORY: Clear to auscultation bilaterally, no increased work of breathing CARDIOVASCULAR: Regular Rate/ Rhythm, no swelling, edema or tenderness in BUE or BLE. All extremities warm. GI: + bowel sounds, soft, NTTP, nondistended. INTEGUMENTARY: Wound on lateral and medial right foot, increased amount of slough on the lateral wound. Surgical wound clean dry and intact with scant drainage at lateral pole. Otherwise normal, no lesion, rash, masses or bruising noted in extremities. MUSCULOSKELETAL: Left BKA, otherwise BUE and BLE normal without defect, crepitus, subluxation, effusion, arthritic changes or TTP. BUE 4+/5, good ROM, with normal tone. BLE 4/5 good ROM, with normal tone NEURO: CN 2-12 grossly intact. Sensation intact in all extremities. Coordination intact in BUE. No tremor noted in 4 extremities. POSTURE and GAIT: Sitting posture good. Balance and gait deferred until seen with therapy, currently unable to stand or ambulate. PSYCH: Alert, oriented x3, affect appears normal. Insight appears intact. - Constitutional Vitals: Vital Signs - 12hr 09/02/21 20:38 Temperature 97.3 F L Respiratory 18 Rate Blood Pressure 157/83 - Allied health notes Allied health notes reviewed: nursing, PT, OT - Labs CBC & Chem 7: 09/01/21 07:19 09/01/21 07:19 Labs: Laboratory Results - last 72 hr 08/31/21 08/31/21 08/31/21 08:31 11:57 16:07 WBC RBC Hgb Hct MCV MCH MCHC RDW Plt Count Sodium Potassium Chloride Carbon Dioxide Anion Gap BUN Creatinine Estimated GFR BUN/Creatinine Ratio Glucose POC Glucose 88 151 H 173 H Calcium 08/31/21 09/01/21 09/01/21 21:04 07:19 07:19 WBC 4.9 RBC 2.66 L Hgb 7.6 L Hct 23.4 L MCV 88 MCH 29 MCHC 33 RDW 18.6 H Plt Count 224 Sodium 140 Potassium 3.9 Chloride 104.6 Carbon Dioxide 29 Anion Gap 10 BUN 20 H Creatinine 0.6 Estimated GFR > 60 BUN/Creatinine Ratio 33 Glucose 80 POC Glucose 160 H Calcium 8.3 L 09/01/21 09/01/21 09/01/21 08:14 11:58 16:35 WBC RBC Hgb Hct MCV MCH MCHC RDW Plt Count Sodium Potassium Chloride Carbon Dioxide Anion Gap BUN Creatinine Estimated GFR BUN/Creatinine Ratio Glucose POC Glucose 76 132 H 189 H Calcium 09/01/21 09/02/21 09/02/21 20:56 07:40 13:04 WBC RBC Hgb Hct MCV MCH MCHC RDW Plt Count Sodium Potassium Chloride Carbon Dioxide Anion Gap BUN Creatinine Estimated GFR BUN/Creatinine Ratio Glucose POC Glucose 160 H 70 104 Calcium 09/02/21 09/02/21 16:32 21:41 WBC RBC Hgb Hct MCV MCH MCHC RDW Plt Count Sodium Potassium Chloride Carbon Dioxide Anion Gap BUN Creatinine Estimated GFR BUN/Creatinine Ratio Glucose POC Glucose 201 H 176 H Calcium Assessment and Plan Left BKA: Patient needs residual limb protector, will contact [facility] for delivery. Continue dressing changes every other day and monitor for any signs of increased drainage, infection or wound dehiscence. Counseled patient on prognosis and timeline for recovery as well as obtaining a prosthesis. Follow- up with surgeon for staple removal Diabetes: Patient continues on carb controlled diet and sliding scale insulin. Have discussed counseling with dietary choices. Have also discussed issues with wound healing and the importance of monitoring her right foot for any wounds and to have those treated as soon as possible if they should develop. Have started long-acting insulin and reduce the dose of the sliding scale. Will monitor and attempt to control her glucose as closely as possible. Doing better with long- acting insulin. Right foot wound, diabetic and traumatic in nature: Continue wound care with dressing changes daily, monitor for any signs of infection or need to start antibiotics. Have counseled the patient to closely monitor this wound as well as any future wounds due to the high risk of her obtaining another amputation with diabetes and new foot wound. Santyl started for slough on the lateral wound. Wound care nurse not available currently Phantom sensation: Continue working with desensitization, will refrain from starting gabapentin currently as the patient is not having acute neuropathic pain but will look to utilize that if needed in the future. Anemia: Appears to be anemia of chronic disease and acute blood loss mixed. She is normocytic. Labs from the acute care side on 08/25 show that the iron is within normal limits at 51, TIBC slightly low at 218 and ferritin elevated at 436. We will add a vitamin B12 and folate with our next blood draw Volume depletion: Responded well to 1 L of gentle IV fluids. We will continue to monitor the patient's intake and look to repeat IV fluids if needed. Did encourage her to continue drinking water. ADL dysfunction: OT will work on improving ability to perform ADLs (including assistive devices) to increase independence and decrease caregiver burden and improve functional transfers and mobility training. Difficulty walking: PT will work on gait training and proper use of assistive devices and advance as appropriate to use of stairs and outside ambulation on uneven surfaces utilizing a rolling walker and safety awareness due to left BKA. Unsteadiness on feet: PT will work on improving static and dynamic sitting and standing balance as well as proper use of assistive devices to decrease risk of falls, have discussed with patient the likelihood that she will fall due to forgetting that she has a left BKA and getting up . Abnormality of gait: PT will work to improve safety and efficiency of gait through neuromotor training and gait training along with instruction on proper use of assistive devices. Will need further training once patient receives left prosthesis Muscle weakness: PT & OT will work on strengthening exercises to improve functional strength including mixture of closed and open kinetic chain exercises. Debility: PT & OT will work on improving overall functional status to improve participation with ADLs, mobility and social involvement. Fatigue: PT & OT will work on improving endurance through aerobic exercises and therapeutic activity while monitoring patients tolerance for activity and vital signs as needed. DVT ppx: Patient's renal function has been acceptable, will change her to Lovenox Pain: Continue physical modalities in therapy and pain medications as needed to achieve functional pain control. Sleep: Monitor and address as needed. Bowel: Monitor and address as needed. Appetite: Monitor and address as needed. Discharge planning: Pending therapy progress and care plan meeting. Will continue discussion with therapy team, SW, patient and family. Restrictions/ Precautions: Falls, wound complication WB status: FWB on RLE, NWB on LLE Functional Hx: ADLs: Independent but went downhill recently with the infection Cognition: Independent Mobility: No AD previously but was crawling around with the infection Barriers to Discharge: Decreased mobility and ability to perform self care, balance deficits, weakness Estimated Length of Stay: 10-14 days Discharge Destination: Home with family Patient has undergone a left BKA and thus cannot safely stand to perform MR ADLs safely with any device. She will need a wheelchair at discharge. She is capable of utilizing the wheelchair and has expressed no contraindications to utilizing the wheelchair in the home environment. We will continue to work with her to improve her ability to mobilize herself in the wheelchair in order to provide her greater independence with performing her MRADLs.
[2021-09-03] MEDS: FAMOTIDINE 20 MG TAB PO SCH (08:59)
[2021-09-03] MEDS: ENOXAPARIN 40 MG/0.4 ML INJ SUB-Q SCH (08:59)
[2021-09-03] MEDS: INSULIN LISPRO 100 UNIT/ML SUB-Q SCH ×5 (09:07→22:39)
[2021-09-03] MEDS: INSULIN GLARGINE 100 UNITS/ML SUB-Q SCH (22:38)
[2021-09-04 05:36] LABS: Hematocrit 27.5 % (30.3-42.9); Hemoglobin 8.7 gm/dl (10.1-14.3); Mean Corpuscular HGB Conc 32 % (30-34); Mean Corpuscular Volume 89 fl (79-97); Platelet Count 264 K/mm3 (140-440); Red Blood Count 3.07 M/mm3 (3.65-5.03)
[2021-09-04 05:37] LABS: Red Cell Distribution Width 20.3 % (13.2-15.2)
[2021-09-04 06:03] LABS: Blood Urea Nitrogen 22 mg/dL (7-17); Calcium 8.2 mg/dL (8.4-10.2); Hemolysis Index 18
[2021-09-04 06:19] LABS: BUN/Creatinine Ratio 37
[2021-09-04] MEDS: INSULIN LISPRO 100 UNIT/ML SUB-Q SCH ×4 (08:00→22:45)
[2021-09-04] MEDS: ENOXAPARIN 40 MG/0.4 ML INJ SUB-Q SCH (10:03)
[2021-09-04] MEDS: FAMOTIDINE 20 MG TAB PO SCH (10:04)
--- NOTE | 2021-09-04 10:55 | Progress Note ---
Subjective Date of service: 09/04/21 Principal diagnosis: L BKA Interval history: 61-year-old female who presented with a diabetic left foot infection which was blistered and having purulent discharge. Patient was admitted and worked up. 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 Dov Bonner. Antibiotics were started. On she underwent a definitive left below the knee amputation with Dr. Dov Bonner. Antibiotics were continued for 3 days post BKA per infectious disease. Her hemoglobin dropped to 5.5 and she was transfused 2 units of packed red blood cells. Hemoglobin is currently at 8.1. Couple days ago prior to admission to rehab her WBCs were elevated at 12.2 which was significantly increased from prior. She also had a slight fever. Recheck of labs prior to admission to rehab show that WBCs have normalized and she has not had another episode of fever. Hemoglobin has improved and stabilized. We will continue to monitor these while she is on the inpatient rehab unit. Unfortunately prior to admission the patient was not compliant with diabetes management and her hemoglobin A1c was 11.9. During her evaluation I spent roughly 60 minutes with the patient discussing diabetes management, wound care and management, wound healing with diabetes, amputation prognosis, desensitization for phantom pain, timeline and prognosis for obtaining a prosthetic limb and the therapy required to start utilizing the prosthetic limb. We also discussed in detail the requirements for her starting on the acute rehab and the intensity of the program. Patient was agreeable and looking forward to starting so that she could improve and return home. Previously the patient was living in a hotel alone, she will be going back to live with family after discharge. In total, greater than 75 minutes was invested in patient care today with greater than 50% of that time utilize counseling and coordinating care. After the patient was medically stabilized she was transferred for participation in acute inpatient intensive rehabilitation program. Interval History: Patient is participating in therapy and making slow progress. Taking rest breaks as needed. +BM, incontinent and wears adult briefs at home. Denies uncontrolled pain, palpitations, dyspnea, cough, N/V, or joint pain. Discussed with the patient that she did do pretty good with therapy yesterday and we need to continue this as we may be forced to discharge her based on insurance recom mendations. Patient is making progress however it is a little bit slower than we would like. We will continue to work with the patient and encouraged her to improve. Left BKA: Continue to monitor, clean dry and intact currently. No signs of wound dehiscence or infection Right foot wound: Continue to change dressing daily and monitor for any signs of worsening infection. Large amount of slough on the lateral wound, will start Santyl. Discussed with nursing. Wound care nurses not available currently Diabetes: Patient tolerating low-dose of Lantus, have reduced sliding scale insulin. Discussed diabetes and importance of checking her skin for wounds going forward and adhering to a controlled carbohydrate and insulin regimen. A1c at admission was 11.9. We will continue to monitor and then in the next day or so may adjust her long-acting insulin upward, may also look to start oral medication. A.M. checks have been below 90 for the most part. Borderline hypertension: Patient continues to have episodes of elevated systolic blood pressure, have discussed with her and will now start a low-dose of metoprolol and monitor her blood pressure and heart rate for normalization. Volume depletion: Gentle IV fluids with good results. Encouraged the patient to continue drinking plenty of water. BUN slightly elevated again today from previous. 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 Labs reviewed from acute care side. B12 and folate both within normal limits Incontinence of bowel and bladder: Patient states that she has been utilizing an adult briefs for the past 6 months. ADL and mobility deficits: Continue working with therapy to improve patient's ability to perform mobility and ADLs as independently as possible. She is utilizing a sliding board transfer to the wheelchair and is able to mobilize herself in the wheelchair. Working on the ability to be able to perform a stand pivot transfer and hopefully will do that over the next couple of days followed by taking steps in the parallel bar and then with a rolling walker. Yesterday patient was able to stand for prolonged period of time which is a great step in the right direction. Unable to ambulate currently. Working on transfers and improving. May be able to continue working with her if she continues this level of progress. All records, vitals, labs and medications were reviewed. No other issues per patient, nursing or therapy. Objective - Exam Narrative Exam: MUSCULOSKELETAL SPECIALTY EXAM CONSTITUTIONAL: Well developed, well nourished, appropriately groomed RESPIRATORY: Clear to auscultation bilaterally, no increased work of breathing CARDIOVASCULAR: Regular Rate/ Rhythm, no swelling, edema or tenderness in BUE or BLE. All extremities warm. GI: + bowel sounds, soft, NTTP, nondistended. INTEGUMENTARY: Wound on lateral and medial right foot, increased amount of slough on the lateral wound. Surgical wound clean dry and intact with scant drainage at lateral pole. Otherwise normal, no lesion, rash, masses or bruising noted in extremities. MUSCULOSKELETAL: Left BKA, otherwise BUE and BLE normal without defect, crepitus, subluxation, effusion, arthritic changes or TTP. BUE 4+/5, good ROM, with normal tone. BLE 4/5 good ROM, with normal tone NEURO: CN 2-12 grossly intact. Sensation intact in all extremities. Coordination intact in BUE. No tremor noted in 4 extremities. POSTURE and GAIT: Sitting posture good. Balance and gait deferred until seen with therapy, currently unable to ambulate. PSYCH: Alert, oriented x3, affect appears normal. Insight appears intact. - Constitutional Vitals: Vital Signs - 12hr 09/03/21 09/04/21 09/04/21 23:13 01:00 08:20 Temperature 98.1 F 97.6 F Pulse Rate 92 H 82 Respiratory 16 18 Rate Blood Pressure 139/74 152/80 O2 Sat by Pulse 100 99 100 Oximetry 09/04/21 08:39 Temperature Pulse Rate Respiratory Rate Blood Pressure O2 Sat by Pulse 99 Oximetry - Allied health notes Allied health notes reviewed: nursing, PT, OT - Labs CBC & Chem 7: 09/04/21 05:20 09/04/21 05:20 Labs: Laboratory Results - last 72 hr 09/01/21 09/01/21 09/01/21 11:58 16:35 20:56 WBC RBC Hgb Hct MCV MCH MCHC RDW Plt Count Sodium Potassium Chloride Carbon Dioxide Anion Gap BUN Creatinine Estimated GFR BUN/Creatinine Ratio Glucose POC Glucose 132 H 189 H 160 H Calcium Vitamin B12 Folate 09/02/21 09/02/21 09/02/21 07:40 13:04 16:32 WBC RBC Hgb Hct MCV MCH MCHC RDW Plt Count Sodium Potassium Chloride Carbon Dioxide Anion Gap BUN Creatinine Estimated GFR BUN/Creatinine Ratio Glucose POC Glucose 70 104 201 H Calcium Vitamin B12 Folate 09/02/21 09/03/21 09/03/21 21:41 18:58 20:33 WBC RBC Hgb Hct MCV MCH MCHC RDW Plt Count Sodium Potassium Chloride Carbon Dioxide Anion Gap BUN Creatinine Estimated GFR BUN/Creatinine Ratio Glucose POC Glucose 176 H 207 H 194 H Calcium Vitamin B12 Folate 09/04/21 09/04/21 09/04/21 05:20 05:20 05:20 WBC 4.9 RBC 3.07 L Hgb 8.7 L Hct 27.5 L MCV 89 MCH 28 MCHC 32 RDW 20.3 H Plt Count 264 Sodium 140 Potassium 4.1 Chloride 104.9 Carbon Dioxide 26 Anion Gap 13 BUN 22 H Creatinine 0.6 Estimated GFR > 60 BUN/Creatinine Ratio 37 Glucose 81 POC Glucose Calcium 8.2 L Vitamin B12 1089 H Folate 09/04/21 09/04/21 05:20 07:45 WBC RBC Hgb Hct MCV MCH MCHC RDW Plt Count Sodium Potassium Chloride Carbon Dioxide Anion Gap BUN Creatinine Estimated GFR BUN/Creatinine Ratio Glucose POC Glucose 83 Calcium Vitamin B12 Folate 8.45 Assessment and Plan Left BKA: Patient needs residual limb protector, will contact [facility] for delivery. Continue dressing changes every other day and monitor for any signs of increased drainage, infection or wound dehiscence. Counseled patient on prognosis and timeline for recovery as well as obtaining a prosthesis. Follow- up with surgeon for staple removal Diabetes: Patient continues on carb controlled diet and sliding scale insulin. Have discussed counseling with dietary choices. Have also discussed issues with wound healing and the importance of monitoring her right foot for any wounds and to have those treated as soon as possible if they should develop. Have started long-acting insulin and reduce the dose of the sliding scale. Will monitor and attempt to control her glucose as closely as possible. Doing better with long- acting insulin. Right foot wound, diabetic and traumatic in nature: Continue wound care with dressing changes daily, monitor for any signs of infection or need to start antibiotics. Have counseled the patient to closely monitor this wound as well as any future wounds due to the high risk of her obtaining another amputation with diabetes and new foot wound. Santyl started for slough on the lateral wound. Wound care nurse not available currently Hypertension: New diagnosis, patient has been presenting with elevated systolic blood pressures on a fairly frequent basis since she admitted. We will start low-dose metoprolol and monitor for improvement. Will attempt to avoid hypotension. Goal less than 140/90. Phantom sensation: Continue working with desensitization, will refrain from starting gabapentin currently as the patient is not having acute neuropathic pain but will look to utilize that if needed in the future. Anemia: Appears to be anemia of chronic disease and acute blood loss mixed. She is normocytic. Labs from the acute care side on 08/25 show that the iron is within normal limits at 51, TIBC slightly low at 218 and ferritin elevated at 436. We will add a vitamin B12 and folate with our next blood draw Volume depletion: Responded well to 1 L of gentle IV fluids. We will continue to monitor the patient's intake and look to repeat IV fluids if needed. Did encourage her to continue drinking water. ADL dysfunction: OT will work on improving ability to perform ADLs (including assistive devices) to increase independence and decrease caregiver burden and improve functional transfers and mobility training. Difficulty walking: PT will work on gait training and proper use of assistive devices and advance as appropriate to use of stairs and outside ambulation on uneven surfaces utilizing a rolling walker and safety awareness due to left BKA. Unsteadiness on feet: PT will work on improving static and dynamic sitting and standing balance as well as proper use of assistive devices to decrease risk of falls, have discussed with patient the likelihood that she will fall due to forgetting that she has a left BKA and getting up . Abnormality of gait: PT will work to improve safety and efficiency of gait through neuromotor training and gait training along with instruction on proper use of assistive devices. Will need further training once patient receives left prosthesis Muscle weakness: PT & OT will work on strengthening exercises to improve functional strength including mixture of closed and open kinetic chain exercises. Debility: PT & OT will work on improving overall functional status to improve participation with ADLs, mobility and social involvement. Fatigue: PT & OT will work on improving endurance through aerobic exercises and therapeutic activity while monitoring patients tolerance for activity and vital signs as needed. DVT ppx: Patient's renal function has been acceptable, will change her to Lovenox Pain: Continue physical modalities in therapy and pain medications as needed to achieve functional pain control. Sleep: Monitor and address as needed. Bowel: Monitor and address as needed. Appetite: Monitor and address as needed. Discharge planning: Pending therapy progress and care plan meeting. Will continue discussion with therapy team, SW, patient and family. Have discussed with the patient today that if she does not continue to improve insurance may issue a discharge and we may be forced to admit her to a fpc facility for further rehabilitation as she is currently not safe to go home. Restrictions/ Precautions: Falls, wound complication WB status: FWB on RLE, NWB on LLE Functional Hx: ADLs: Independent but went downhill recently with the infection Cognition: Independent Mobility: No AD previously but was crawling around with the infection Barriers to Discharge: Decreased mobility and ability to perform self care, balance deficits, weakness Estimated Length of Stay: 10-14 days Discharge Destination: Home with family Patient has undergone a left BKA and thus cannot safely stand to perform MR ADLs safely with any device. She will need a wheelchair at discharge. She is capable of utilizing the wheelchair and has expressed no contraindications to utilizing the wheelchair in the home environment. We will continue to work with her to improve her ability to mobilize herself in the wheelchair in order to provide her greater independence with performing her MRADLs.
[2021-09-04] MEDS: INSULIN GLARGINE 100 UNITS/ML SUB-Q SCH (22:39)
[2021-09-04] MEDS: METOPROLOL TARTRATE 25 MG TAB PO SCH (22:41)
[2021-09-05] MEDS: INSULIN LISPRO 100 UNIT/ML SUB-Q SCH ×4 (08:22→21:33)
[2021-09-05] MEDS: FAMOTIDINE 20 MG TAB PO SCH (10:35)
[2021-09-05] MEDS: METOPROLOL TARTRATE 25 MG TAB PO SCH ×2 (11:33→21:34)
[2021-09-05] MEDS: ENOXAPARIN 40 MG/0.4 ML INJ SUB-Q SCH (11:33)
[2021-09-05] MEDS: INSULIN GLARGINE 100 UNITS/ML SUB-Q SCH (21:33)
[2021-09-06] MEDS: INSULIN LISPRO 100 UNIT/ML SUB-Q SCH ×4 (08:30→22:16)
[2021-09-06] MEDS: ENOXAPARIN 40 MG/0.4 ML INJ SUB-Q SCH (09:03)
[2021-09-06] MEDS: METOPROLOL TARTRATE 25 MG TAB PO SCH ×2 (09:03→22:15)
[2021-09-06] MEDS: FAMOTIDINE 20 MG TAB PO SCH (09:04)
--- NOTE | 2021-09-06 10:23 | Progress Note ---
Subjective Date of service: 09/06/21 Principal diagnosis: L BKA Interval history: 61-year-old female who presented with a diabetic left foot infection which was blistered and having purulent discharge. Patient was admitted and worked up. 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 oDv Bonner. Antibiotics were started. On she underwent a definitive left below the knee amputation with Dr. Dov Bonner. Antibiotics were continued for 3 days post BKA per infectious disease. Her hemoglobin dropped to 5.5 and she was transfused 2 units of packed red blood cells. Hemoglobin is currently at 8.1. Couple days ago prior to admission to rehab her WBCs were elevated at 12.2 which was significantly increased from prior. She also had a slight fever. Recheck of labs prior to admission to rehab show that WBCs have normalized and she has not had another episode of fever. Hemoglobin has improved and stabilized. We will continue to monitor these while she is on the inpatient rehab unit. Unfortunately prior to admission the patient was not compliant with diabetes management and her hemoglobin A1c was 11.9. During her evaluation I spent roughly 60 minutes with the patient discussing diabetes management, wound care and management, wound healing with diabetes, amputation prognosis, desensitization for phantom pain, timeline and prognosis for obtaining a prosthetic limb and the therapy required to start utilizing the prosthetic limb. We also discussed in detail the requirements for her starting on the acute rehab and the intensity of the program. Patient was agreeable and looking forward to starting so that she could improve and return home. Previously the patient was living in a hotel alone, she will be going back to live with family after discharge. In total, greater than 75 minutes was invested in patient care today with greater than 50% of that time utilize counseling and coordinating care. After the patient was medically stabilized she was transferred for participation in acute inpatient intensive rehabilitation program. Interval History: Patient is participating in therapy and making progress. Taking rest breaks as needed. +BM, incontinent and wears adult briefs at home. Denies uncontrolled pain, palpitations, dyspnea, cough, N/V, or joint pain. Left BKA: Continue to monitor, clean dry and intact currently. No signs of wound dehiscence or infection Right foot wound: Continue to change dressing daily and monitor for any signs of worsening infection. Continue Santyl. Wound care nurses not available currently Diabetes: Patient tolerating low-dose of Lantus, have reduced sliding scale insulin. Discussed diabetes and importance of checking her skin for wounds going forward and adhering to a controlled carbohydrate and insulin regimen. Patient was rightfully concerned about the amount of carbohydrates on her plate including white bread, orange juice, etc. Going forward she needs to continue to monitor her dietary intake concentrate more on complex carbs proteins and healthy fats and avoid simple carbs and sugars. A1c at admission was 11.9. We will continue to monitor and then in the next day or so may adjust her long- acting insulin upward, may also look to start oral medication. A.M. checks have been below 90 for the most part. Hypertension: Started on metoprolol at a low dose, blood pressure seems to be improving. We will continue to monitor and adjust if needed. Volume depletion: Gentle IV fluids with good results. Encouraged the patient to continue drinking plenty of water. 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 Labs reviewed from acute care side. B12 and folate both within normal limits Incontinence of bowel and bladder: Patient states that she has been utilizing an adult briefs for the past 6 months. ADL and mobility deficits: Continue working with therapy to improve patient's ability to perform mobility and ADLs as independently as possible. She is utilizing a sliding board transfer to the wheelchair and is able to mobilize herself in the wheelchair. Working on the ability to be able to perform a stand pivot transfer and hopefully will do that over the next couple of days followed by taking steps in the parallel bar and then with a rolling walker. Yesterday patient was able to stand for prolonged period of time which is a great step in the right direction. Unable to ambulate currently. Working on transfers and improving. May be able to continue working with her if she continues this level of progress. All records, vitals, labs and medications were reviewed. No other issues per patient, nursing or therapy. Objective - Exam Narrative Exam: MUSCULOSKELETAL SPECIALTY EXAM CONSTITUTIONAL: Well developed, well nourished, appropriately groomed RESPIRATORY: Clear to auscultation bilaterally, no increased work of breathing CARDIOVASCULAR: Regular Rate/ Rhythm, no swelling, edema or tenderness in BUE or BLE. All extremities warm. GI: + bowel sounds, soft, NTTP, nondistended. INTEGUMENTARY: Wound on lateral and medial right foot, increased amount of slough on the lateral wound. Surgical wound clean dry and intact. Otherwise normal, no lesi on, rash, masses or bruising noted in extremities. MUSCULOSKELETAL: Left BKA, otherwise BUE and BLE normal without defect, crepitus, subluxation, effusion, arthritic changes or TTP. BUE 4+/5, good ROM, with normal tone. BLE 4/5 good ROM, with normal tone NEURO: Sensation intact in all extremities. Coordination intact in BUE. No tremor noted in 4 extremities. POSTURE and GAIT: Sitting posture good. Balance and gait deferred until seen with therapy, currently unable to ambulate. PSYCH: Alert, oriented x3, affect appears normal. Insight appears intact. - Constitutional Vitals: Vital Signs - 12hr 09/05/21 09/06/21 09/06/21 23:14 03:32 08:09 Temperature 98.2 F 99.0 F 98.6 F Pulse Rate 82 84 Respiratory 16 16 18 Rate Blood Pressure 127/64 100/43 140/66 O2 Sat by Pulse 96 99 Oximetry - Allied health notes Allied health notes reviewed: nursing, PT, OT - Labs CBC & Chem 7: 09/04/21 05:20 09/04/21 05:20 Labs: Laboratory Results - last 72 hr 09/03/21 09/03/21 09/04/21 18:58 20:33 05:20 WBC 4.9 RBC 3.07 L Hgb 8.7 L Hct 27.5 L MCV 89 MCH 28 MCHC 32 RDW 20.3 H Plt Count 264 Sodium Potassium Chloride Carbon Dioxide Anion Gap BUN Creatinine Estimated GFR BUN/Creatinine Ratio Glucose POC Glucose 207 H 194 H Calcium Vitamin B12 Folate 09/04/21 09/04/21 09/04/21 05:20 05:20 05:20 WBC RBC Hgb Hct MCV MCH MCHC RDW Plt Count Sodium 140 Potassium 4.1 Chloride 104.9 Carbon Dioxide 26 Anion Gap 13 BUN 22 H Creatinine 0.6 Estimated GFR > 60 BUN/Creatinine Ratio 37 Glucose 81 POC Glucose Calcium 8.2 L Vitamin B12 1089 H Folate 8.45 09/04/21 09/04/21 09/04/21 07:45 11:47 20:34 WBC RBC Hgb Hct MCV MCH MCHC RDW Plt Count Sodium Potassium Chloride Carbon Dioxide Anion Gap BUN Creatinine Estimated GFR BUN/Creatinine Ratio Glucose POC Glucose 83 148 H 181 H Calcium Vitamin B12 Folate 09/05/21 09/05/21 09/05/21 07:48 12:06 16:01 WBC RBC Hgb Hct MCV MCH MCHC RDW Plt Count Sodium Potassium Chloride Carbon Dioxide Anion Gap BUN Creatinine Estimated GFR BUN/Creatinine Ratio Glucose POC Glucose 106 H 132 H 182 H Calcium Vitamin B12 Folate 09/05/21 09/06/21 21:16 08:10 WBC RBC Hgb Hct MCV MCH MCHC RDW Plt Count Sodium Potassium Chloride Carbon Dioxide Anion Gap BUN Creatinine Estimated GFR BUN/Creatinine Ratio Glucose POC Glucose 213 H 83 Calcium Vitamin B12 Folate Assessment and Plan Left BKA: Ampu-shield has been delivered by [employer]. Continue dressing changes e very other day and monitor for any signs of increased drainage, infection or wound dehiscence. Counseled patient on prognosis and timeline for recovery as well as obtaining a prosthesis. Follow-up with surgeon for staple removal Diabetes: Patient continues on carb controlled diet and sliding scale insulin. Have discussed counseling with dietary choices. Have also discussed issues with wound healing and the importance of monitoring her right foot for any wounds and to have those treated as soon as possible if they should develop. Have started long-acting insulin and reduce the dose of the sliding scale. Will monitor and attempt to control her glucose as closely as possible. Doing better with long- acting insulin. Right foot wound, diabetic and traumatic in nature: Continue wound care with dressing changes daily, monitor for any signs of infection or need to start antibiotics. Have counseled the patient to closely monitor this wound as well as any future wounds due to the high risk of her obtaining another amputation with diabetes and new foot wound. Santyl started for slough on the lateral wound. Wound care nurse not available currently Hypertension: New diagnosis, patient has been presenting with elevated systolic blood pressures on a fairly frequent basis since she admitted. We will start low-dose metoprolol and monitor for improvement. Will attempt to avoid hypo tension. Goal less than 140/90. Phantom sensation: Continue working with desensitization, will refrain from starting gabapentin currently as the patient is not having acute neuropathic pain but will look to utilize that if needed in the future. Anemia: Appears to be anemia of chronic disease and acute blood loss mixed. She is normocytic. Labs from the acute care side on 08/25 show that the iron is within normal limits at 51, TIBC slightly low at 218 and ferritin elevated at 436. We will add a vitamin B12 and folate with our next blood draw Volume depletion: Responded well to 1 L of gentle IV fluids. We will continue to monitor the patient's intake and look to repeat IV fluids if needed. Did encourage her to continue drinking water. ADL dysfunction: OT will work on improving ability to perform ADLs (including assistive devices) to increase independence and decrease caregiver burden and improve functional transfers and mobility training. Difficulty walking: PT will work on gait training and proper use of assistive devices and advance as appropriate to use of stairs and outside ambulation on uneven surfaces utilizing a rolling walker and safety awareness due to left BKA. Unsteadiness on feet: PT will work on improving static and dynamic sitting and standing balance as well as proper use of assistive devices to decrease risk of falls, have discussed with patient the likelihood that she will fall due to forgetting that she has a left BKA and getting up . Abnormality of gait: PT will work to improve safety and efficiency of gait through neuromotor training and gait training along with instruction on proper use of assistive devices. Will need further training once patient receives left prosthesis Muscle weakness: PT & OT will work on strengthening exercises to improve functional strength including mixture of closed and open kinetic chain exercises. Debility: PT & OT will work on improving overall functional status to improve participation with ADLs, mobility and social involvement. Fatigue: PT & OT will work on improving endurance through aerobic exercises and therapeutic activity while monitoring patients tolerance for activity and vital signs as needed. DVT ppx: Patient's renal function has been acceptable, will change her to Lovenox Pain: Continue physical modalities in therapy and pain medications as needed to achieve functional pain control. Sleep: Monitor and address as needed. Bowel: Monitor and address as needed. Appetite: Monitor and address as needed. Discharge planning: Pending therapy progress and care plan meeting. Will con tinue discussion with therapy team, SW, patient and family. Have discussed with the patient today that if she does not continue to improve insurance may issue a discharge and we may be forced to admit her to a senior care facility for further rehabilitation as she is currently not safe to go home. Restrictions/ Precautions: Falls, wound complication WB status: FWB on RLE, NWB on LLE Functional Hx: ADLs: Independent but went downhill recently with the infection Cognition: Independent Mobility: No AD previously but was crawling around with the infection Barriers to Discharge: Decreased mobility and ability to perform self care, balance deficits, weakness Estimated Length of Stay: 10-14 days Discharge Destination: Home with family Patient has undergone a left BKA and thus cannot safely stand to perform MR ADLs safely with any device. She will need a wheelchair at discharge. She is capable of utilizing the wheelchair and has expressed no contraindications to utilizing the wheelchair in the home environment. We will continue to work with her to improve her ability to mobilize herself in the wheelchair in order to provide her greater independence with performing her MRADLs.
[2021-09-06] MEDS: INSULIN GLARGINE 100 UNITS/ML SUB-Q SCH (22:16)
[2021-09-07] MEDS: INSULIN LISPRO 100 UNIT/ML SUB-Q SCH ×3 (08:25→17:30)
[2021-09-07] MEDS: METOPROLOL TARTRATE 25 MG TAB PO SCH ×2 (09:09→22:11)
[2021-09-07] MEDS: ENOXAPARIN 40 MG/0.4 ML INJ SUB-Q SCH (09:10)
[2021-09-07] MEDS: FAMOTIDINE 20 MG TAB PO SCH (09:10)
[2021-09-08] MEDS: INSULIN GLARGINE 100 UNITS/ML SUB-Q SCH ×2 (00:55→21:15)
[2021-09-08] MEDS: INSULIN LISPRO 100 UNIT/ML SUB-Q SCH ×4 (00:56→21:16)
--- NOTE | 2021-09-08 08:09 | Progress Note ---
Subjective Date of service: 09/08/21 Principal diagnosis: L BKA Interval history: 61-year-old female who presented with a diabetic left foot infection which was blistered and having purulent discharge. Patient was admitted and worked up. 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 Dov Bonner. Antibiotics were started. On she underwent a definitive left below the knee amputation with Dr. Dov Bonner. Antibiotics were continued for 3 days post BKA per infectious disease. Her hemoglobin dropped to 5.5 and she was transfused 2 units of packed red blood cells. Hemoglobin is currently at 8.1. Couple days ago prior to admission to rehab her WBCs were elevated at 12.2 which was significantly increased from prior. She also had a slight fever. Recheck of labs prior to admission to rehab show that WBCs have normalized and she has not had another episode of fever. Hemoglobin has improved and stabilized. We will continue to monitor these while she is on the inpatient rehab unit. Unfortunately prior to admission the patient was not compliant with diabetes management and her hemoglobin A1c was 11.9. During her evaluation I spent roughly 60 minutes with the patient discussing diabetes management, wound care and management, wound healing with diabetes, amputation prognosis, desensitization for phantom pain, timeline and prognosis for obtaining a prosthetic limb and the therapy required to start utilizing the prosthetic limb. We also discussed in detail the requirements for her starting on the acute rehab and the intensity of the program. Patient was agreeable and looking forward to starting so that she could improve and return home. Previously the patient was living in a hotel alone, she will be going back to live with family after discharge. In total, greater than 75 minutes was invested in patient care today with greater than 50% of that time utilize counseling and coordinating care. After the patient was medically stabilized she was transferred for participation in acute inpatient intensive rehabilitation program. Interval History: Patient is participating in therapy and making progress. Taking rest breaks as needed. +BM, incontinent and wears adult briefs at home. Denies uncontrolled pain, palpitations, dyspnea, cough, N/V, or joint pain. Left BKA: Continue to monitor, clean dry and intact currently. No signs of wound dehiscence or infection Right foot wound: Continue to change dressing daily and monitor for any signs of worsening infection. Continue Santyl. Wound care nurses not available currently Diabetes: Patient tolerating low-dose of Lantus, have reduced sliding scale insulin. Discussed diabetes and importance of checking her skin for wounds going forward and adhering to a controlled carbohydrate and insulin regimen. A1c at admission was 11.9. A.M. checks have been below 90 for the most part. Continue to monitor and adjust as needed Hypertension: Started on metoprolol at a low dose, blood pressure improving. We will continue to monitor and adjust if needed. Volume depletion: Gentle IV fluids with good results. Encouraged the patient to continue drinking plenty of water. 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 Labs reviewed from acute care side. B12 and folate both within normal limits Incontinence of bowel and bladder: Patient states that she has been utilizing an adult briefs for the past 6 months. ADL and mobility deficits: Continue working with therapy to improve patient's ability to perform mobility and ADLs as independently as possible. She is utilizing a sliding board transfer to the wheelchair and is able to mobilize herself in the wheelchair. Working on the ability to be able to perform a stand pivot transfer and hopefully will do that over the next couple of days followed by taking steps in the parallel bar and then with a rolling walker. Unable to ambulate currently. Working on transfers and improving. May be able to continue working with her if she continues this level of progress. All records, vitals, labs and medications were reviewed. No other issues per patient, nursing or therapy. Objective - Exam Narrative Exam: MUSCULOSKELETAL SPECIALTY EXAM CONSTITUTIONAL: Well developed, well nourished, appropriately groomed RESPIRATORY: Clear to auscultation bilaterally, no increased work of breathing CARDIOVASCULAR: Regular Rate/ Rhythm, no swelling, edema or tenderness in BUE or BLE. All extremities warm. GI: + bowel sounds, soft, NTTP, nondistended. INTEGUMENTARY: Wound on lateral and medial right foot, increased amount of slough on the lateral wound. Surgical wound clean dry and intact. Otherwise normal, no lesion, rash, masses or bruising noted in extremities. MUSCULOSKELETAL: Left BKA, otherwise BUE and BLE normal without defect, crepitus, subluxation, effusion, arthritic changes or TTP. BUE 4+/5, good ROM, with normal tone. BLE 4/5 good ROM, with normal tone NEURO: Sensation intact in all extremities. Coordination intact in BUE. No tremor noted in 4 extremities. POSTURE and GAIT: Sitting posture good. Balance and gait deferred until seen with therapy, currently unable to ambulate. Able to transfer independently with sliding board PSYCH: Alert, oriented x3, affect appears normal. Insight appears intact. - Constitutional Vitals: Vital Signs - 12hr 09/07/21 09/07/21 09/07/21 21:18 22:11 23:00 Temperature 98.4 F Pulse Rate 96 H 82 Respiratory 18 18 Rate Blood Pressure 129/60 Blood Pressure 129/60 [Right] O2 Sat by Pulse 98 99 Oximetry - Allied health notes Allied health notes reviewed: nursing, PT, OT - Labs CBC & Chem 7: 09/04/21 05:20 09/04/21 05:20 Labs: Laboratory Results - last 72 hr 09/05/21 09/05/21 09/05/21 12:06 16:01 21:16 POC Glucose 132 H 182 H 213 H 09/06/21 09/06/21 09/06/21 08:10 12:50 16:50 POC Glucose 83 133 H 126 H 09/06/21 09/07/21 09/07/21 20:29 08:33 11:11 POC Glucose 177 H 70 124 H 09/07/21 09/08/21 09/08/21 17:15 00:47 07:57 POC Glucose 120 H 172 H 81 Assessment and Plan Left BKA: Ampu-shield has been delivered by [employer]. Continue dressing changes every other day and monitor for any signs of increased drainage, infection or wound dehiscence. Counseled patient on prognosis and timeline for recovery as well as obtaining a prosthesis. Follow-up with surgeon for staple removal Diabetes: Patient continues on carb controlled diet and sliding scale insulin. Have discussed counseling with dietary choices. Have also discussed issues with wound healing and the importance of monitoring her right foot for any wounds and to have those treated as soon as possible if they should develop. Have started long-acting insulin and reduce the dose of the sliding scale. Will monitor and attempt to control her glucose as closely as possible. Doing better with long-acting insulin. Right foot wound, diabetic and traumatic in nature: Continue wound care with dressing changes daily, monitor for any signs of infection or need to start antibiotics. Have counseled the patient to closely monitor this wound as well as any future wounds due to the high risk of her obtaining another amputation with diabetes and new foot wound. Santyl started for slough on the lateral wound. Wound care nurse not available currently Hypertension: New diagnosis, continue low-dose metoprolol and monitor for improvement. Will attempt to avoid hypotension. Goal less than 140/90. Phantom sensation: Continue working with desensitization, will refrain from starting gabapentin currently as the patient is not having acute neuropathic pain but will look to utilize that if needed in the future. Anemia: Appears to be anemia of chronic disease and acute blood loss mixed. She is normocytic. Labs from the acute care side on 08/25 show that the iron is within normal limits at 51, TIBC slightly low at 218 and ferritin elevated at 436. We will add a vitamin B12 and folate with our next blood draw Volume depletion: Responded well to 1 L of gentle IV fluids. We will continue to monitor the patient's intake and look to repeat IV fluids if needed. Did encourage her to continue drinking water. ADL dysfunction: OT will work on improving ability to perform ADLs (including assistive devices) to increase independence and decrease caregiver burden and improve functional transfers and mobility training. Difficulty walking: PT will work on gait training and proper use of assistive devices and advance as appropriate to use of stairs and outside ambulation on uneven surfaces utilizing a rolling walker and safety awareness due to left BKA. Unsteadiness on feet: PT will work on improving static and dynamic sitting and standing balance as well as proper use of assistive devices to decrease risk of falls, have discussed with patient the likelihood that she will fall due to forgetting that she has a left BKA and getting up . Abnormality of gait: PT will work to improve safety and efficiency of gait through neuromotor training and gait training along with instruction on proper use of assistive devices. Will need further training once patient receives left prosthesis Muscle weakness: PT & OT will work on strengthening exercises to improve functional strength including mixture of closed and open kinetic chain exercises. Debility: PT & OT will work on improving overall functional status to improve participation with ADLs, mobility and social involvement. Fatigue: PT & OT will work on improving endurance through aerobic exercises and therapeutic activity while monitoring patients tolerance for activity and vital signs as needed. DVT ppx: Patient's renal function has been acceptable, will change her to Lovenox Pain: Continue physical modalities in therapy and pain medications as needed to achieve functional pain control. Sleep: Monitor and address as needed. Bowel: Monitor and address as needed. Appetite: Monitor and address as needed. Discharge planning: Pending therapy progress and care plan meeting. Will continue discussion with therapy team, SW, patient and family. Have discussed with the patient today that if she does not continue to improve insurance may issue a discharge and we may be forced to admit her to a assisted facili for further rehabilitation as she is currently not safe to go home. Restrictions/ Precautions: Falls, wound complication WB status: FWB on RLE, NWB on LLE Functional Hx: ADLs: Independent but went downhill recently with the infection Cognition: Independent Mobility: No AD previously but was crawling around with the infection Barriers to Discharge: Decreased mobility and ability to perform self care, balance deficits, weakness Estimated Length of Stay: 10-14 days Discharge Destination: Home with family Patient has undergone a left BKA and thus cannot safely stand to perform MR ADLs safely with any device. She will need a wheelchair at discharge. She is capable of utilizing the wheelchair and has expressed no contraindications to utilizing the wheelchair in the home environment. We will continue to work with her to improve her ability to mobilize herself in the wheelchair in order to provide her greater independence with performing her MRADLs.
[2021-09-08] MEDS: METOPROLOL TARTRATE 25 MG TAB PO SCH ×2 (11:20→21:16)
[2021-09-08] MEDS: FAMOTIDINE 20 MG TAB PO SCH (11:20)
[2021-09-08] MEDS: ENOXAPARIN 40 MG/0.4 ML INJ SUB-Q SCH (11:20)
[2021-09-09] MEDS: INSULIN LISPRO 100 UNIT/ML SUB-Q SCH ×4 (10:52→22:52)
[2021-09-09] MEDS: ENOXAPARIN 40 MG/0.4 ML INJ SUB-Q SCH (14:49)
[2021-09-09] MEDS: FAMOTIDINE 20 MG TAB PO SCH (14:50)
[2021-09-09] MEDS: METOPROLOL TARTRATE 25 MG TAB PO SCH ×2 (14:50→22:51)
--- NOTE | 2021-09-09 15:43 | Progress Note ---
Subjective Date of service: 09/09/21 Principal diagnosis: L BKA Interval history: 61-year-old female who presented with a diabetic left foot infection which was blistered and having purulent discharge. Patient was admitted and worked up. 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 Dov Bonner. Antibiotics were started. On she underwent a definitive left below the knee amputation with Dr. Dov Bonner. Antibiotics were continued for 3 days post BKA per infectious disease. Her hemoglobin dropped to 5.5 and she was transfused 2 units of packed red blood cells. Hemoglobin is currently at 8.1. Couple days ago prior to admission to rehab her WBCs were elevated at 12.2 which was significantly increased from prior. She also had a slight fever. Recheck of labs prior to admission to rehab show that WBCs have normalized and she has not had another episode of fever. Hemoglobin has improved and stabilized. We will continue to monitor these while she is on the inpatient rehab unit. Unfortunately prior to admission the patient was not compliant with diabetes management and her hemoglobin A1c was 11.9. During her evaluation I spent roughly 60 minutes with the patient discussing diabetes management, wound care and management, wound healing with diabetes, amputation prognosis, desensitization for phantom pain, timeline and prognosis for obtaining a prosthetic limb and the therapy required to start utilizing the prosthetic limb. We also discussed in detail the requirements for her starting on the acute rehab and the intensity of the program. Patient was agreeable and looking forward to starting so that she could improve and return home. Previously the patient was living in a hotel alone, she will be going back to live with family after discharge. In total, greater than 75 minutes was invested in patient care today with greater than 50% of that time utilize counseling and coordinating care. After the patient was medically stabilized she was transferred for participation in acute inpatient intensive rehabilitation program. Interval History: Patient is participating in therapy and making progress. Taking rest breaks as needed. +BM, incontinent and wears adult briefs at home. Denies uncontrolled pain, palpitations, dyspnea, cough, N/V, or joint pain. Left BKA: Continue to monitor, clean dry and intact currently. No signs of wound dehiscence or infection Right foot wound: Continue to change dressing daily and monitor for any signs of worsening infection. Continue Santyl. Wound care nurses not available currently Diabetes: Patient tolerating low-dose of Lantus, have reduced sliding scale insulin. Discussed diabetes and importance of checking her skin for wounds going forward and adhering to a controlled carbohydrate and insulin regimen. A1c at admission was 11.9. A.M. checks have been below 90 for the most part. Continue to monitor and adjust as needed Hypertension: Started on metoprolol at a low dose, blood pressure improving overall however slightly elevated today, monitor for improvement. We will continue to monitor and adjust if needed. Volume depletion: Gentle IV fluids with good results. Encouraged the patient to continue drinking plenty of water. 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 Labs reviewed from acute care side. B12 and folate both within normal limits Incontinence of bowel and bladder: Patient states that she has been utilizing an adult briefs for the past 6 months. ADL and mobility deficits: Continue working with therapy to improve patient's ability to perform mobility and ADLs as independently as possible. She is utilizing a sliding board transfer to the wheelchair and is able to mobilize herself in the wheelchair. Working on the ability to be able to perform a stand pivot transfer and hopefully will do that over the next couple of days followed by taking steps in the parallel bar and then with a rolling walker. Unable to ambulate currently. Working on transfers and improving. May be able to continue working with her if she continues this level of progress. All records, vitals, labs and medications were reviewed. No other issues per patient, nursing or therapy. Patient discussed in team conference today. slow progress and seems to be starting to plateau. We will look to discharge this week on or Wednesday. Does have poor carryover for safety issues. Is using the sliding board fairly well and has good bed mobility and can propel the wheelchair independently on flat surfaces. However on uneven surfaces are when trying to perform stand pivot transfers the patient does a pretty poor job. My recommendation would be snf facility placement however the patient does not want this and instead wants to go home with her older aunt and uncle, I question their ability to perform the appropriate level of care for her however she states that they are capable and she has other people that will be coming in to help out as well. Based on her new diagnosis of a left BKA, poor ability to stand, and poor mobility we will discharge her with a drop arm bedside commode, wheelchair with elevating leg rest on the left and a sliding board. In total, 39 minutes was invested in patient care today including greater than 50% of that time spent counseling coordinating care with clinical staff and patient concerning discharge home and the decision to go home versus snf facility. Objective - Exam Narrative Exam: MUSCULOSKELETAL SPECIALTY EXAM CONSTITUTIONAL: Well developed, well nourished, appropriately groomed RESPIRATORY: Clear to auscultation bilaterally, no increased work of breathing CARDIOVASCULAR: Regular Rate/ Rhythm, no swelling, edema or tenderness in BUE or BLE. All extremities warm. GI: + bowel sounds, soft, NTTP, nondistended. INTEGUMENTARY: Wound on lateral and medial right foot, increased amount of slough on the lateral wound. Surgical wound clean dry and intact. Otherwise normal, no lesion, rash, masses or bruising noted in extremities. MUSCULOSKELETAL: Left BKA, otherwise BUE and BLE normal without defect, crepitus, subluxation, effusion, arthritic changes or TTP. BUE 4+/5, good ROM, with normal tone. BLE 4/5 good ROM, with normal tone NEURO: Sensation intact in all extremities. Coordination intact in BUE. No tremor noted in 4 extremities. POSTURE and GAIT: Sitting posture good. Balance and gait deferred until seen with therapy, currently unable to ambulate. Able to transfer independently with sliding board PSYCH: Alert, oriented x3, affect appears normal. Insight appears intact, decreased carryover and safety awareness. - Constitutional Vitals: Vital Signs - 12hr 09/09/21 08:44 Temperature 98.6 F Pulse Rate 77 Blood Pressure 168/77 O2 Sat by Pulse 97 Oximetry - Allied health notes Allied health notes reviewed: nursing, PT, OT - Labs CBC & Chem 7: 09/04/21 05:20 09/04/21 05:20 Labs: Laboratory Results - last 72 hr 09/06/21 09/06/21 09/07/21 16:50 20:29 08:33 POC Glucose 126 H 177 H 70 09/07/21 09/07/21 09/08/21 11:11 17:15 00:47 POC Glucose 124 H 120 H 172 H 09/08/21 09/08/21 09/08/21 07:57 13:03 16:59 POC Glucose 81 123 H 134 H 09/08/21 09/09/21 20:36 07:43 POC Glucose 193 H 123 H Assessment and Plan Left BKA: Ampu-shield has been delivered by [employer]. Continue dressing changes every other day and monitor for any signs of increased drainage, infection or wound dehiscence. Counseled patient on prognosis and timeline for recovery as well as obtaining a prosthesis. Follow-up with surgeon for staple removal Diabetes: Patient continues on carb controlled diet and sliding scale insulin. Have discussed counseling with dietary choices. Have also discussed issues with wound healing and the importance of monitoring her right foot for any wounds and to have those treated as soon as possible if they should develop. Have started long-acting insulin and reduce the dose of the sliding scale. Will monitor and attempt to control her glucose as closely as possible. Doing better with long- acting insulin. Right foot wound, diabetic and traumatic in nature: Continue wound care with dressing changes daily, monitor for any signs of infection or need to start antibiotics. Have counseled the patient to closely monitor this wound as well as any future wounds due to the high risk of her obtaining another amputation with diabetes and new foot wound. Santyl started for slough on the lateral wound. Wound care nurse not available currently Hypertension: New diagnosis, continue low-dose metoprolol and monitor for improvement. Will attempt to avoid hypotension. Goal less than 140/90. Phantom sensation: Continue working with desensitization, will refrain from starting gabapentin currently as the patient is not having acute neuropathic pain but will look to utilize that if needed in the future. Anemia: Appears to be anemia of chronic disease and acute blood loss mixed. She is normocytic. Labs from the acute care side on 08/25 show that the iron is with in normal limits at 51, TIBC slightly low at 218 and ferritin elevated at 436. We will add a vitamin B12 and folate with our next blood draw Volume depletion: Responded well to 1 L of gentle IV fluids. We will continue to monitor the patient's intake and look to repeat IV fluids if needed. Did e ncourage her to continue drinking water. ADL dysfunction: OT will work on improving ability to perform ADLs (including assistive devices) to increase independence and decrease caregiver burden and im prove functional transfers and mobility training. Difficulty walking: PT will work on gait training and proper use of assistive devices and advance as appropriate to use of stairs and outside ambulation on uneven surfaces utilizing a rolling walker and safety awareness due to left BKA. Unsteadiness on feet: PT will work on improving static and dynamic sitting and standing balance as well as proper use of assistive devices to decrease risk of falls, have discussed with patient the likelihood that she will fall due to forgetting that she has a left BKA and getting up . Abnormality of gait: PT will work to improve safety and efficiency of gait through neuromotor training and gait training along with instruction on proper use of assistive devices. Will need further training once patient receives left prosthesis Muscle weakness: PT & OT will work on strengthening exercises to improve fun ctional strength including mixture of closed and open kinetic chain exercises. Debility: PT & OT will work on improving overall functional status to improve participation with ADLs, mobility and social involvement. Fatigue: PT & OT will work on improving endurance through aerobic exercises and therapeutic activity while monitoring patients tolerance for activity and vital signs as needed. DVT ppx: Patient's renal function has been acceptable, will change her to Lovenox Pain: Continue physical modalities in therapy and pain medications as needed to achieve functional pain control. Sleep: Monitor and address as needed. Bowel: Monitor and address as needed. Appetite: Monitor and address as needed. Discharge planning: Pending therapy progress and care plan meeting. Will continue discussion with therapy team, SW, patient and family. Have discussed with the patient today that if she does not continue to improve insurance may issue a discharge and we may be forced to admit her to a snf facility for further rehabilitation as she is currently not safe to go home. Restrictions/ Precautions: Falls, wound complication WB status: FWB on RLE, NWB on LLE Functional Hx: ADLs: Independent but went downhill recently with the infection Cognition: Independent Mobility: No AD previously but was crawling around with the infection Barriers to Discharge: Decreased mobility and ability to perform self care, balance deficits, weakness Estimated Length of Stay: 10-14 days Discharge Destination: Home with family Patient has undergone a left BKA and thus cannot safely stand to perform MR ADLs safely with any device. She will need a wheelchair at discharge. She is capab le of utilizing the wheelchair and has expressed no contraindications to utilizing the wheelchair in the home environment. We will continue to work with her to improve her ability to mobilize herself in the wheelchair in order to provide her greater independence with performing her MRADLs. Due to the patient's high risk for fall and her decreased ability to perform stand pivot transfers, will also need to provide a sliding board for transfers and a drop arm bedside commode.
[2021-09-09] MEDS: INSULIN GLARGINE 100 UNITS/ML SUB-Q SCH (22:51)
--- NOTE | 2021-09-10 07:16 | Progress Note ---
Subjective Date of service: 09/10/21 Principal diagnosis: L BKA Interval history: 61-year-old female who presented with a diabetic left foot infection which was blistered and having purulent discharge. Patient was admitted and worked up. 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 Dov Bonner. Antibiotics were started. On she underwent a definitive left below the knee amputation with Dr. Dov Bonner. Antibiotics were continued for 3 days post BKA per infectious disease. Her hemoglobin dropped to 5.5 and she was transfused 2 units of packed red blood cells. Hemoglobin is currently at 8.1. Couple days ago prior to admission to rehab her WBCs were elevated at 12.2 which was significantly increased from prior. She also had a slight fever. Recheck of labs prior to admission to rehab show that WBCs have normalized and she has not had another episode of fever. Hemoglobin has improved and stabilized. We will continue to monitor these while she is on the inpatient rehab unit. Unfortunately prior to admission the patient was not compliant with diabetes management and her hemoglobin A1c was 11.9. During her evaluation I spent roughly 60 minutes with the patient discussing diabetes management, wound care and management, wound healing with diabetes, amputation prognosis, desensitization for phantom pain, timeline and prognosis for obtaining a prosthetic limb and the therapy required to start utilizing the prosthetic limb. We also discussed in detail the requirements for her starting on the acute rehab and the intensity of the program. Patient was agreeable and looking forward to starting so that she could improve and return home. Previously the patient was living in a hotel alone, she will be going back to live with family after discharge. In total, greater than 75 minutes was invested in patient care today with greater than 50% of that time utilize counseling and coordinating care. After the patient was medically stabilized she was transferred for participation in acute inpatient intensive rehabilitation program. Interval History: Patient is participating in therapy and making progress. Taking rest breaks as needed. +BM, incontinent and wears adult briefs at home. Denies uncontrolled pain, palpitations, dyspnea, cough, N/V, or joint pain. Left BKA: Continue to monitor, clean dry and intact currently. No signs of wound dehiscence or infection Right foot wound: Continue to change dressing daily and monitor for any signs of worsening infection. Continue Santyl. Wound care nurses not available currently Diabetes: Patient tolerating low-dose of Lantus, have reduced sliding scale insulin. Discussed diabetes and importance of checking her skin for wounds going forward and adhering to a controlled carbohydrate and insulin regimen. A1c at admission was 11.9. A.M. checks have been below 90 for the most part. Continue to monitor and adjust as needed. Glucose levels are starting to creep up, uncertain if this is due to patient's food choices. We will start low-dose metformin and monitor Hypertension: Started on metoprolol at a low dose, blood pressure improved overall however she is elevating more recently. We will increase metoprolol. We will continue to monitor and adjust if needed. Volume depletion: Gentle IV fluids with good results. Encouraged the patient to continue drinking plenty of water. 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 Labs reviewed from acute care side. B12 and folate both within normal limits. Recheck labs tomorrow Incontinence of bowel and bladder: Patient states that she has been utilizing an adult briefs for the past 6 months. ADL and mobility deficits: Continue working with therapy to improve patient's ability to perform mobility and ADLs as independently as possible. She is utilizing a sliding board transfer to the wheelchair and is able to mobilize herself in the wheelchair. Working on the ability to be able to perform a stand pivot transfer and hopefully will do that over the next couple of days followed by taking steps in the parallel bar and then with a rolling walker. Unable to ambulate currently. Working on transfers and improving. At this point patient will be wheelchair-bound at discharge. She is having a difficult time with standing and or taking any steps in the parallel bars. Preference would be that she go to a nursing home facility however the patient does not want to do this and we will discharge home with assistance from family and home health. All records, vitals, labs and medications were reviewed. No other issues per patient, nursing or therapy. Objective - Exam Narrative Exam: MUSCULOSKELETAL SPECIALTY EXAM CONSTITUTIONAL: Well developed, well nourished, appropriately groomed RESPIRATORY: Clear to auscultation bilaterally, no increased work of breathing CARDIOVASCULAR: Regular Rate/ Rhythm, no swelling, edema or tenderness in BUE or BLE. All extremities warm. GI: + bowel sounds, soft, NTTP, nondistended. INTEGUMENTARY: Wound on lateral and medial right foot, increased amount of slough on the lateral wound. Surgical wound clean dry and intact. Otherwise normal, no lesion, rash, masses or bruising noted in extremities. MUSCULOSKELETAL: Left BKA, otherwise BUE and BLE normal without defect, crepitus, subluxation, effusion, arthritic changes or TTP. BUE 4+/5, good ROM, with normal tone. BLE 4/5 good ROM, with normal tone NEURO: Sensation intact in all extremities. No tremor noted in 4 extremities. POSTURE and GAIT: Sitting posture good. Currently unable to ambulate. Able to transfer independently with sliding board PSYCH: Alert, oriented x3, affect appears normal. Insight appears intact, decreased carryover and safety awareness. - Constitutional Vitals: Vital Signs - 12hr 09/09/21 09/09/21 09/10/21 21:33 23:00 04:56 Temperature 98.1 F 98.1 F Pulse Rate 84 77 Respiratory 16 14 Rate Blood Pressure 143/68 Blood Pressure 150/78 [Right] O2 Sat by Pulse 99 98 94 Oximetry - Allied health notes Allied health notes reviewed: nursing, PT, OT - Labs CBC & Chem 7: 09/04/21 05:20 09/04/21 05:20 Labs: Laboratory Results - last 72 hr 09/07/21 09/07/21 09/07/21 08:33 11:11 17:15 POC Glucose 70 124 H 120 H 09/08/21 09/08/21 09/08/21 00:47 07:57 13:03 POC Glucose 172 H 81 123 H 09/08/21 09/08/21 09/09/21 16:59 20:36 07:43 POC Glucose 134 H 193 H 123 H 09/09/21 09/09/21 16:14 21:11 POC Glucose 230 H 240 H Assessment and Plan Left BKA: Ampu-shield has been delivered by [employer]. Continue dressing changes every other day and monitor for any signs of increased drainage, infection or wound dehiscence. Counseled patient on prognosis and timeline for recovery as well as obtaining a prosthesis. Follow-up with surgeon for staple removal Diabetes: Patient continues on carb controlled diet and sliding scale insulin. Have discussed counseling with dietary choices. Have also discussed issues with wound healing and the importance of monitoring her right foot for any wounds a nd to have those treated as soon as possible if they should develop. Have started long-acting insulin and reduce the dose of the sliding scale. Will monitor and attempt to control her glucose as closely as possible. Doing better with long-acting insulin. Start metformin and monitor Right foot wound, diabetic and traumatic in nature: Continue wound care with dressing changes daily, monitor for any signs of infection or need to start antibiotics. Have counseled the patient to closely monitor this wound as well as any future wounds due to the high risk of her obtaining another amputation wi th diabetes and new foot wound. Santyl started for slough on the lateral wound. Wound care nurse not available currently Hypertension: New diagnosis, continue low-dose metoprolol and monitor for im provement, dose increased on 09/10. Will attempt to avoid hypotension. Goal less than 140/90. Phantom sensation: Continue working with desensitization, will refrain from starting gabapentin currently as the patient is not having acute neuropathic pain but will look to utilize that if needed in the future. Anemia: Appears to be anemia of chronic disease and acute blood loss mixed. She is normocytic. Labs from the acute care side on 08/25 show that the iron is within normal limits at 51, TIBC slightly low at 218 and ferritin elevated at 436. Vitamin B12 and folate within normal limits. Recheck labs tomorrow Volume depletion: Responded well to 1 L of gentle IV fluids. We will continue t o monitor the patient's intake and look to repeat IV fluids if needed. Did encourage her to continue drinking water. ADL dysfunction: OT will work on improving ability to perform ADLs (including assistive devices) to increase independence and decrease caregiver burden and improve functional transfers and mobility training. Difficulty walking: PT will work on gait training and proper use of assistive devices and advance as appropriate to use of stairs and outside ambulation on uneven surfaces utilizing a rolling walker and safety awareness due to left BKA. Unsteadiness on feet: PT will work on improving static and dynamic sitting and standing balance as well as proper use of assistive devices to decrease risk of falls, have discussed with patient the likelihood that she will fall due to forgetting that she has a left BKA and getting up . Abnormality of gait: PT will work to improve safety and efficiency of gait through neuromotor training and gait training along with instruction on proper use of assistive devices. Will need further training once patient receives left prosthesis Muscle weakness: PT & OT will work on strengthening exercises to improve functional strength including mixture of closed and open kinetic chain exercises. Debility: PT & OT will work on improving overall functional status to improve participation with ADLs, mobility and social involvement. Fatigue: PT & OT will work on improving endurance through aerobic exercises and therapeutic activity while monitoring patients tolerance for activity and vital signs as needed. DVT ppx: Patient's renal function has been acceptable, will change her to Lovenox Pain: Continue physical modalities in therapy and pain medications as needed to achieve functional pain control. Sleep: Monitor and address as needed. Bowel: Monitor and address as needed. Appetite: Monitor and address as needed. Discharge planning: Pending therapy progress and care plan meeting. Will continue discussion with therapy team, SW, patient and family. Have discussed with the patient today that if she does not continue to improve insurance may issue a discharge and we may be forced to admit her to a nursing home facil ity for further rehabilitation as she is currently not safe to go home. Restrictions/ Precautions: Falls, wound complication WB status: FWB on RLE, NWB on LLE Functional Hx: ADLs: Independent but went downhill recently with the infection Cognition: Independent Mobility: No AD previously but was crawling around with the infection Barriers to Discharge: Decreased mobility and ability to perform self care, balance deficits, weakness Estimated Length of Stay: 10-14 days Discharge Destination: Home with family Patient has undergone a left BKA and thus cannot safely stand to perform MR ADLs safely with any device. She will need a wheelchair at discharge. She is capable of utilizing the wheelchair and has expressed no contraindications to utilizing the wheelchair in the home environment. We will continue to work with her to improve her ability to mobilize herself in the wheelchair in order to provide her greater independence with performing her MRADLs. Due to the patient's high risk for fall and her decreased ability to perform stand pivot transfers, will also need to provide a sliding board for transfers and a drop arm bedside commode.
[2021-09-10] MEDS: INSULIN LISPRO 100 UNIT/ML SUB-Q SCH ×4 (08:37→21:24)
[2021-09-10] MEDS: metFORMIN 500 MG TAB PO SCH ×2 (10:10→18:39)
[2021-09-10] MEDS: METOPROLOL TARTRATE 25 MG TAB PO SCH ×2 (14:40→21:13)
[2021-09-10] MEDS: ENOXAPARIN 40 MG/0.4 ML INJ SUB-Q SCH (14:40)
[2021-09-10] MEDS: FAMOTIDINE 20 MG TAB PO SCH (14:41)
[2021-09-10] MEDS: INSULIN GLARGINE 100 UNITS/ML SUB-Q SCH (21:13)
--- NOTE | 2021-09-11 07:45 | Progress Note ---
Subjective Date of service: 09/11/21 Principal diagnosis: L BKA Interval history: 61-year-old female who presented with a diabetic left foot infection which was blistered and having purulent discharge. Patient was admitted and worked up. 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 Dov Bonner. Antibiotics were started. On she underwent a definitive left below the knee amputation with Dr. Dov Bonner. Antibiotics were continued for 3 days post BKA per infectious disease. Her hemoglobin dropped to 5.5 and she was transfused 2 units of packed red blood cells. Hemoglobin is currently at 8.1. Couple days ago prior to admission to rehab her WBCs were elevated at 12.2 which was significantly increased from prior. She also had a slight fever. Recheck of labs prior to admission to rehab show that WBCs have normalized and she has not had another episode of fever. Hemoglobin has improved and stabilized. We will continue to monitor these while she is on the inpatient rehab unit. Unfortunately prior to admission the patient was not compliant with diabetes management and her hemoglobin A1c was 11.9. During her evaluation I spent roughly 60 minutes with the patient discussing diabetes management, wound care and management, wound healing with diabetes, amputation prognosis, desensitization for phantom pain, timeline and prognosis for obtaining a prosthetic limb and the therapy required to start utilizing the prosthetic limb. We also discussed in detail the requirements for her starting on the acute rehab and the intensity of the program. Patient was agreeable and looking forward to starting so that she could improve and return home. Previously the patient was living in a hotel alone, she will be going back to live with family after discharge. In total, greater than 75 minutes was invested in patient care today with greater than 50% of that time utilize counseling and coordinating care. After the patient was medically stabilized she was transferred for participation in acute inpatient intensive rehabilitation program. Interval History: Patient is participating in therapy and making progress. Taking rest breaks as needed. +BM, incontinent and wears adult briefs at home. Denies uncontrolled pain, palpitations, dyspnea, cough, N/V, or joint pain. Left BKA: Continue to monitor, clean dry and intact currently. No signs of wound dehiscence or infection. Will need to follow-up with surgeon for staple removal Right foot wound: Continue to change dressing daily and monitor for any signs of worsening infection. Continue Santyl, slough decreasing. Wound care nurses not available currently Diabetes: Patient tolerating low-dose of Lantus, have reduced sliding scale insulin. Discussed diabetes and importance of checking her skin for wounds going forward and adhering to a controlled carbohydrate and insulin regimen. A1c at admission was 11.9. A.M. checks have been below 90 for the most part. Continue to monitor and adjust as needed. Glucose levels are starting to creep up, uncertain if this is due to patient's food choices. Continue low-dose metformin and monitor. Hypertension: Started on metoprolol at a low dose, blood pressure improved overall however she is elevating more recently. We will increase metoprolol. We will continue to monitor and adjust if needed. Volume depletion: Gentle IV fluids with good results. Encouraged the patient to continue drinking plenty of water. Continue to encourage oral fluids, will monitor. Labs pending today Anemia, combined acute blood loss and chronic disease: Combination of chronic disease and acute blood loss. Labs reviewed from acute care side. B12 and folate both within normal limits. Labs pending today Incontinence of bowel and bladder: Patient states that she has been utilizing an adult briefs for the past 6 months. ADL and mobility deficits: Continue working with therapy to improve patient's ability to perform mobility and ADLs as independently as possible. She is utilizing a sliding board transfer to the wheelchair and is able to mobilize herself in the wheelchair. Working on the ability to be able to perform a stand pivot transfer and hopefully will do that over the next couple of days followed by taking steps in the parallel bar and then with a rolling walker. Unable to ambulate currently. Working on transfers and improving. At this point patient will be wheelchair-bound at discharge. She is having a difficult time with standing and or taking any steps in the parallel bars. Preference would be that she go to a senior living facility however the patient does not want to do this and we will discharge home with assistance from family and home health. All records, vitals, labs and medications were reviewed. No other issues per patient, nursing or therapy. Objective - Exam Narrative Exam: MUSCULOSKELETAL SPECIALTY EXAM CONSTITUTIONAL: Well developed, well nourished, appropriately groomed RESPIRATORY: Clear to auscultation bilaterally, no increased work of breathing CARDIOVASCULAR: Regular Rate/ Rhythm, no swelling, edema or tenderness in BUE or BLE. All extremities warm. GI: + bowel sounds, soft, NTTP, nondistended. INTEGUMENTARY: Wound on lateral and medial right foot, decreasing amount of slough on the l ateral wound. Surgical wound clean dry and intact. Otherwise normal, no lesion, rash, masses or bruising noted in extremities. MUSCULOSKELETAL: Left BKA, otherwise BUE and BLE normal without defect, crepitus, subluxation, effusion, arthritic changes or TTP. BUE 4+/5, good ROM, with normal tone. BLE 4/5 good ROM, with normal tone NEURO: Sensation intact in all extremities. No tremor noted in 4 extremities. POSTURE and GAIT: Sitting posture good. Currently unable to ambulate. Able to transfer independently with sliding board PSYCH: Alert, oriented x3, affect appears normal. Insight appears intact, decreased carryover and safety awareness. - Constitutional Vitals: Vital Signs - 12hr 09/10/21 09/10/21 09/11/21 20:00 21:02 03:25 Temperature 98.7 F 98.7 F Pulse Rate 76 81 Respiratory 14 14 Rate Blood Pressure 126/60 132/67 O2 Sat by Pulse 96 98 100 Oximetry - Allied health notes Allied health notes reviewed: nursing, PT, OT - Labs CBC & Chem 7: 09/04/21 05:20 09/04/21 05:20 Labs: Laboratory Results - last 72 hr 09/08/21 09/08/21 09/08/21 07:57 13:03 16:59 POC Glucose 81 123 H 134 H 09/08/21 09/09/21 09/09/21 20:36 07:43 16:14 POC Glucose 193 H 123 H 230 H 09/09/21 09/10/21 09/10/21 21:11 07:59 12:29 POC Glucose 240 H 98 129 H 09/10/21 09/10/21 16:52 20:59 POC Glucose 140 H 198 H Assessment and Plan Left BKA: Ampu-shield has been delivered by [employer]. Continue dressing changes every other day and monitor for any signs of increased drainage, infection or wound dehiscence. Counseled patient on prognosis and timeline for recovery as well as obtaining a prosthesis. Follow-up with surgeon for staple removal Diabetes: Patient continues on carb controlled diet and sliding scale insulin. Have discussed counseling with dietary choices. Have also discussed issues with wound healing and the importance of monitoring her right foot for any wounds and to have those treated as soon as possible if they should develop. Have started long-acting insulin and reduce the dose of the sliding scale. Will monitor and attempt to control her glucose as closely as possible. Doing better with long- acting insulin. Continue metformin and monitor Right foot wound, diabetic and traumatic in nature: Continue wound care with dressing changes daily, monitor for any signs of infection or need to start antibiotics. Have counseled the patient to closely monitor this wound as well as any future wounds due to the high risk of her obtaining another amputation with diabetes and new foot wound. Santyl started for slough on the lateral wound, amount of slough decreasing. Wound care nurse not available currently Hypertension: New diagnosis, continue low-dose metoprolol and monitor for improvement, dose increased on 09/10. Will attempt to avoid hypotension. Goal less than 140/90. Phantom sensation: Continue working with desensitization, will refrain from starting gabapentin currently as the patient is not having acute neuropathic pain but will look to utilize that if needed in the future. Anemia: Appears to be anemia of chronic disease and acute blood loss mixed. She is normocytic. Labs from the acute care side on 08/25 show that the iron is within normal limits at 51, TIBC slightly low at 218 and ferritin elevated at 436. Vitamin B12 and folate within normal limits. Labs pending Volume depletion: Responded well to 1 L of gentle IV fluids. We will continue to monitor the patient's intake and look to repeat IV fluids if needed. Did encourage her to continue drinking water. Labs pending ADL dysfunction: OT will work on improving ability to perform ADLs (including assistive devices) to increase independence and decrease caregiver burden and improve functional transfers and mobility training. Difficulty walking: PT will work on gait training and proper use of assistive devices and advance as appropriate to use of stairs and outside ambulation on uneven surfaces utilizing a rolling walker and safety awareness due to left BKA. Unsteadiness on feet: PT will work on improving static and dynamic sitting and standing balance as well as proper use of assistive devices to decrease risk of falls, have discussed with patient the likelihood that she will fall due to forgetting that she has a left BKA and getting up . Abnormality of gait: PT will work to improve safety and efficiency of gait through neuromotor training and gait training along with instruction on proper use of assistive devices. Will need further training once patient receives left prosthesis Muscle weakness: PT & OT will work on strengthening exercises to improve functional strength including mixture of closed and open kinetic chain exercises. Debility: PT & OT will work on improving overall functional status to improve participation with ADLs, mobility and social involvement. Fatigue: PT & OT will work on improving endurance through aerobic exercises and therapeutic activity while monitoring patients tolerance for activity and vital signs as needed. DVT ppx: Patient's renal function has been acceptable, will change her to Lovenox Pain: Continue physical modalities in therapy and pain medications as needed to achieve functional pain control. Sleep: Monitor and address as needed. Bowel: Monitor and address as needed. Appetite: Monitor and address as needed. Discharge planning: Pending therapy progress and care plan meeting. Will continue discussion with therapy team, SW, patient and family. Patient will discharge home on Wednesday. My preference would be for her to go to senior living facility so that she can continue rehabilitation as she is not able to take steps currently, however the patient may or may not have coverage for senior living facility and she does not want to go. We will discharge her home with home health as well as assistance from family. Have discussed the issues with the patient on numerous occasions including today about my concerns with her not having continued supervision Restrictions/ Precautions: Falls, wound complication WB status: FWB on RLE, NWB on LLE Functional Hx: ADLs: Independent but went downhill recently with the infection Cognition: Independent Mobility: No AD previously but was crawling around with the infection Barriers to Discharge: Decreased mobility and ability to perform self care, balance deficits, weakness Estimated Length of Stay: 10-14 days Discharge Destination: Home with family Patient has undergone a left BKA and thus cannot safely stand to perform MR ADLs safely with any device. She will need a wheelchair at discharge. She is capable of utilizing the wheelchair and has expressed no contraindications to utilizing the wheelchair in the home environment. We will continue to work with her to improve her ability to mobilize herself in the wheelchair in order to provide her greater independence with performing her MRADLs. Due to the patient's high risk for fall and her decreased ability to perform stand pivot transfers, will also need to provide a sliding board for transfers and a drop arm bedside commode.
[2021-09-11] MEDS: INSULIN LISPRO 100 UNIT/ML SUB-Q SCH ×4 (08:30→22:01)
[2021-09-11] MEDS: METOPROLOL TARTRATE 25 MG TAB PO SCH ×2 (09:45→21:57)
[2021-09-11] MEDS: FAMOTIDINE 20 MG TAB PO SCH (09:45)
[2021-09-11] MEDS: metFORMIN 500 MG TAB PO SCH ×3 (09:45→16:31)
[2021-09-11] MEDS: ENOXAPARIN 40 MG/0.4 ML INJ SUB-Q SCH (09:46)
[2021-09-11 09:58] LABS: Hematocrit 25.3 % (30.3-42.9); Hemoglobin 8.1 gm/dl (10.1-14.3); Mean Corpuscular HGB Conc 32 % (30-34); Mean Corpuscular Volume 89 fl (79-97); Platelet Count 279 K/mm3 (140-440); Red Blood Count 2.83 M/mm3 (3.65-5.03)
[2021-09-11 10:21] LABS: Blood Urea Nitrogen 22 mg/dL (7-17); Calcium 8.8 mg/dL (8.4-10.2); Hemolysis Index 1; Red Cell Distribution Width 20.2 % (13.2-15.2)
[2021-09-11 10:26] LABS: BUN/Creatinine Ratio 31
[2021-09-11] MEDS: INSULIN GLARGINE 100 UNITS/ML SUB-Q SCH (21:59)
[2021-09-12] MEDS: INSULIN LISPRO 100 UNIT/ML SUB-Q SCH ×4 (07:30→21:15)
--- NOTE | 2021-09-12 09:24 | Progress Note ---
Subjective Date of service: 09/12/21 Principal diagnosis: L BKA Interval history: 61-year-old female who presented with a diabetic left foot infection which was blistered and having purulent discharge. Patient was admitted and worked up. 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 Dov Bonner. Antibiotics were started. On she underwent a definitive left below the knee amputation with Dr. Dov Bonner. Antibiotics were continued for 3 days post BKA per infectious disease. Her hemoglobin dropped to 5.5 and she was transfused 2 units of packed red blood cells. Hemoglobin is currently at 8.1. Couple days ago prior to admission to rehab her WBCs were elevated at 12.2 which was significantly increased from prior. She also had a slight fever. Recheck of labs prior to admission to rehab show that WBCs have normalized and she has not had another episode of fever. Hemoglobin has improved and stabilized. We will continue to monitor these while she is on the inpatient rehab unit. Unfortunately prior to admission the patient was not compliant with diabetes management and her hemoglobin A1c was 11.9. During her evaluation I spent roughly 60 minutes with the patient discussing diabetes management, wound care and management, wound healing with diabetes, amputation prognosis, desensitization for phantom pain, timeline and prognosis for obtaining a prosthetic limb and the therapy required to start utilizing the prosthetic limb. We also discussed in detail the requirements for her starting on the acute rehab and the intensity of the program. Patient was agreeable and looking forward to starting so that she could improve and return home. Previously the patient was living in a hotel alone, she will be going back to live with family after discharge. In total, greater than 75 minutes was invested in patient care today with greater than 50% of that time utilize counseling and coordinating care. After the patient was medically stabilized she was transferred for participation in acute inpatient intensive rehabilitation program. Interval History: Patient is participating in therapy and making progress. Taking rest breaks as needed. +BM, incontinent and wears adult briefs at home. Denies uncontrolled pain, palpitations, dyspnea, cough, N/V, or joint pain. Patient is now opting to go to correction facility, awaiting authorization. Left BKA: Continue to monitor, clean dry and intact currently. No signs of wound dehiscence or infection. Will need to follow-up with surgeon for staple removal Right foot wound: Continue to change dressing daily and monitor for any signs of worsening infection. Continue Santyl, slough decreasing. Wound care nurses not available currently Diabetes: Patient tolerating low-dose of Lantus, have reduced sliding scale insulin. Discussed diabetes and importance of checking her skin for wounds going forward and adhering to a controlled carbohydrate and insulin regimen. A1c at admission was 11.9. A.M. checks have been below 90 for the most part. Continue to monitor and adjust as needed. Glucose levels are starting to creep up, uncertain if this is due to patient's food choices. Continue low-dose metformin and monitor. Hypertension: Continue metoprolol, blood pressure is variable. We will continue to monitor and adjust if needed. Volume depletion: Gentle IV fluids with good results. Encouraged the patient to continue drinking plenty of water. Continue to encourage oral fluids, will monitor. Labs pending today Anemia, combined acute blood loss and chronic disease: Combination of chronic disease and acute blood loss. Labs reviewed from acute care side. B12 and folate both within normal limits. Labs pending today Incontinence of bowel and bladder: Patient states that she has been utilizing an adult briefs for the past 6 months. ADL and mobility deficits: Continue working with therapy to improve patient's ability to perform mobility and ADLs as independently as possible. She is utilizing a sliding board transfer to the wheelchair and is able to mobilize herself in the wheelchair. Working on the ability to be able to perform a stand pivot transfer and hopefully will do that over the next couple of days followed by taking steps in the parallel bar and then with a rolling walker. Unable to ambulate currently. Working on transfers and improving. At this point patient will be wheelchair-bound at discharge. She is having a difficult time with standing and or taking any steps in the parallel bars. Preference would be that she go to a correction facility however the patient does not want to do this and we will discharge home with assistance from family and home health. All records, vitals, labs and medications were reviewed. No other issues per patient, nursing or therapy. Objective - Exam Narrative Exam: MUSCULOSKELETAL SPECIALTY EXAM CONSTITUTIONAL: Well developed, well nourished, appropriately groomed RESPIRATORY: Clear to auscultation bilaterally, no increased work of breathing CARDIOVASCULAR: Regular Rate/ Rhythm, no swelling, edema or tenderness in BUE or BLE. All extremities warm. GI: + bowel sounds, soft, NTTP, nondistended. INTEGUMENTARY: Wound on lateral and medial right foot, decreasing amount of slough on the lateral wound. Surgical wound clean dry and intact. Otherwise normal, no lesion, rash, masses or bruising noted in extremities. MUSCULOSKELETAL: Left BKA, otherwise BUE and BLE normal without defect, crepitus, subluxation, effusion, arthritic changes or TTP. BUE 4+/5, good ROM, with normal tone. BLE 4/5 good ROM, with normal tone NEURO: Sensation intact in all extremities. No tremor noted in 4 extremities. POSTURE and GAIT: Sitting posture good. Currently unable to ambulate. Able to transfer independently with sliding board. Able to tumbler machine operator parallel bars but unable to clear her foot with attempted hopping PSYCH: Alert, oriented x3, affect appears normal. Insight appears intact, decreased carryover and safety awareness. - Constitutional Vitals: Vital Signs - 12hr 09/11/21 09/11/21 09/11/21 21:57 23:00 23:51 Temperature 98.6 F Pulse Rate 79 75 Respiratory 18 Rate Blood Pressure 155/67 Blood Pressure 165/75 [Right] O2 Sat by Pulse 99 99 Oximetry - Allied health notes Allied health notes reviewed: nursing, PT, OT - Labs CBC & Chem 7: 09/11/21 09:22 09/11/21 09:22 Labs: Laboratory Results - last 72 hr 09/09/21 09/09/21 09/10/21 16:14 21:11 07:59 WBC RBC Hgb Hct MCV MCH MCHC RDW Plt Count Sodium Potassium Chloride Carbon Dioxide Anion Gap BUN Creatinine Estimated GFR BUN/Creatinine Ratio Glucose POC Glucose 230 H 240 H 98 Calcium 09/10/21 09/10/21 09/10/21 12:29 16:52 20:59 WBC RBC Hgb Hct MCV MCH MCHC RDW Plt Count Sodium Potassium Chloride Carbon Dioxide Anion Gap BUN Creatinine Estimated GFR BUN/Creatinine Ratio Glucose POC Glucose 129 H 140 H 198 H Calcium 09/11/21 09/11/21 09/11/21 08:37 09:22 09:22 WBC 4.6 RBC 2.83 L Hgb 8.1 L Hct 25.3 L MCV 89 MCH 29 MCHC 32 RDW 20.2 H Plt Count 279 Sodium 138 Potassium 4.2 Chloride 101.6 Carbon Dioxide 28 Anion Gap 13 BUN 22 H Creatinine 0.7 Estimated GFR > 60 BUN/Creatinine Ratio 31 Glucose 128 H POC Glucose 103 Calcium 8.8 09/11/21 09/11/21 09/11/21 12:01 16:26 20:00 WBC RBC Hgb Hct MCV MCH MCHC RDW Plt Count Sodium Potassium Chloride Carbon Dioxide Anion Gap BUN Creatinine Estimated GFR BUN/Creatinine Ratio Glucose POC Glucose 119 H 118 H 201 H Calcium 09/12/21 08:18 WBC RBC Hgb Hct MCV MCH MCHC RDW Plt Count Sodium Potassium Chloride Carbon Dioxide Anion Gap BUN Creatinine Estimated GFR BUN/Creatinine Ratio Glucose POC Glucose 120 H Calcium Assessment and Plan Left BKA: Ampu-shield has been delivered by Radio Tower Technician. Continue dressing changes every other day and monitor for any signs of increased drainage, infection or wound dehiscence. Counseled patient on prognosis and timeline for recovery as well as obtaining a prosthesis. Follow-up with surgeon for staple removal Diabetes: Patient continues on carb controlled diet and sliding scale insulin. Have discussed counseling with dietary choices. Have also discussed issues with wound healing and the importance of monitoring her right foot for any wounds and to have those treated as soon as possible if they should develop. Have started long-acting insulin and reduce the dose of the sliding scale. Will monitor and attempt to control her glucose as closely as possible. Doing better with long- acting insulin. Continue metformin and monitor Right foot wound, diabetic and traumatic in nature: Continue wound care with dressing changes daily, monitor for any signs of infection or need to start antibiotics. Have counseled the patient to closely monitor this wound as well as any future wounds due to the high risk of her obtaining another amputation with diabetes and new foot wound. Santyl started for slough on the lateral wound, amount of slough decreasing. Wound care nurse not available currently Hypertension: New diagnosis, continue low-dose metoprolol and monitor for impro vement, dose increased on 09/10. Will attempt to avoid hypotension. Goal less than 140/90. Phantom sensation: Continue working with desensitization, will refrain from starting gabapentin currently as the patient is not having acute neuropathic pain but will look to utilize that if needed in the future. Anemia: Appears to be anemia of chronic disease and acute blood loss mixed. She is normocytic. Labs from the acute care side on 08/25 show that the iron is within normal limits at 51, TIBC slightly low at 218 and ferritin elevated at 436. Vitamin B12 and folate within normal limits. Labs pending Volume depletion: Responded well to 1 L of gentle IV fluids. We will continue to monitor the patient's intake and look to repeat IV fluids if needed. Did encourage her to continue drinking water. Labs pending Goiter?: Patient states that she has had this worked up in the past and was to ld to just monitor. We will check a thyroid panel next lab draw. Patient should follow-up with endocrinology as outpatient ADL dysfunction: OT will work on improving ability to perform ADLs (including assistive devices) to increase independence and decrease caregiver burden and improve functional transfers and mobility training. Difficulty walking: PT will work on gait training and proper use of assistive devices and advance as appropriate to use of stairs and outside ambulation on uneven surfaces utilizing a rolling walker and safety awareness due to left BKA. Unsteadiness on feet: PT will work on improving static and dynamic sitting and standing balance as well as proper use of assistive devices to decrease risk of falls, have discussed with patient the likelihood that she will fall due to forgetting that she has a left BKA and getting up . Abnormality of gait: PT will work to improve safety and efficiency of gait through neuromotor training and gait training along with instruction on proper use of assistive devices. Will need further training once patient receives left prosthesis Muscle weakness: PT & OT will work on strengthening exercises to improve functional strength including mixture of closed and open kinetic chain exercises. Debility: PT & OT will work on improving overall functional status to improve participation with ADLs, mobility and social involvement. Fatigue: PT & OT will work on improving endurance through aerobic exercises and therapeutic activity while monitoring patients tolerance for activity and vital signs as needed. DVT ppx: Lovenox Pain: Continue physical modalities in therapy and pain medications as needed to achieve functional pain control. Sleep: Monitor and address as needed. Bowel: Monitor and address as needed. Appetite: Monitor and address as needed. Discharge planning: Pending therapy progress and care plan meeting. Will continue discussion with therapy team, SW, patient and family. Patient will discharge home on Wednesday. My preference would be for her to go to correction facility so that she can continue rehabilitation as she is not able to take steps currently, however the patient may or may not have coverage for correction facility and she does not want to go. We will discharge her home with home health as well as assistance from family. Have discussed the issues with the patient on numerous occasions including today about my concerns with her not having continued supervision Restrictions/ Precautions: Falls, wound complication WB status: FWB on RLE, NWB on LLE Functional Hx: ADLs: Independent but went downhill recently with the infection Cognition: Independent Mobility: No AD previously but was crawling around with the infection Barriers to Discharge: Decreased mobility and ability to perform self care, balance deficits, weakness Estimated Length of Stay: 10-14 days Discharge Destination: Home with family Patient has undergone a left BKA and thus cannot safely stand to perform MR ADLs safely with any device. She will need a wheelchair at discharge. She is capable of utilizing the wheelchair and has expressed no contraindications to utilizing the wheelchair in the home environment. We will continue to work with her to improve her ability to mobilize herself in the wheelchair in order to provide her greater independence with performing her MRADLs. Due to the p atient's high risk for fall and her decreased ability to perform stand pivot transfers, will also need to provide a sliding board for transfers and a drop arm bedside commode.
[2021-09-12] MEDS: metFORMIN 500 MG TAB PO SCH ×2 (10:01→16:34)
[2021-09-12] MEDS: METOPROLOL TARTRATE 25 MG TAB PO SCH ×2 (11:28→21:05)
[2021-09-12] MEDS: FAMOTIDINE 20 MG TAB PO SCH ×2 (11:28→11:30)
[2021-09-12] MEDS: ENOXAPARIN 40 MG/0.4 ML INJ SUB-Q SCH (11:28)
[2021-09-12] MEDS: INSULIN GLARGINE 100 UNITS/ML SUB-Q SCH (21:05)
[2021-09-13] MEDS: INSULIN LISPRO 100 UNIT/ML SUB-Q SCH ×4 (07:36→21:40)
[2021-09-13] MEDS: metFORMIN 500 MG TAB PO SCH ×2 (11:00→16:56)
[2021-09-13] MEDS: METOPROLOL TARTRATE 25 MG TAB PO SCH ×2 (11:01→21:43)
[2021-09-13] MEDS: FAMOTIDINE 20 MG TAB PO SCH (11:01)
[2021-09-13] MEDS: ENOXAPARIN 40 MG/0.4 ML INJ SUB-Q SCH (11:01)
[2021-09-13] MEDS: INSULIN GLARGINE 100 UNITS/ML SUB-Q SCH (21:41)
[2021-09-14] MEDS: INSULIN LISPRO 100 UNIT/ML SUB-Q SCH ×4 (08:21→22:16)
[2021-09-14] MEDS: metFORMIN 500 MG TAB PO SCH ×2 (08:23→16:05)
[2021-09-14] MEDS: FAMOTIDINE 20 MG TAB PO SCH (10:35)
[2021-09-14] MEDS: ENOXAPARIN 40 MG/0.4 ML INJ SUB-Q SCH (10:36)
[2021-09-14] MEDS: METOPROLOL TARTRATE 25 MG TAB PO SCH ×2 (10:36→22:16)
[2021-09-14] MEDS: INSULIN GLARGINE 100 UNITS/ML SUB-Q SCH (22:15)
--- NOTE | 2021-09-15 08:32 | Progress Note ---
Subjective Date of service: 09/15/21 Principal diagnosis: L BKA Interval history: 61-year-old female who presented with a diabetic left foot infection which was blistered and having purulent discharge. Patient was admitted and worked up. 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 Dov Bonner. Antibiotics were started. On 08/20 she underwent a definitive left below the knee amputation with Dr. Dov Bonner. Antibiotics were continued for 3 days post BKA per infectious disease. Her hemoglobin dropped to 5.5 and she was transfused 2 units of packed red blood cells. Hemoglobin is currently at 8.1. Couple days ago prior to admission to rehab her WBCs were elevated at 12.2 which was significantly increased from prior. She also had a slight fever. Recheck o f labs prior to admission to rehab show that WBCs have normalized and she has not had another episode of fever. Hemoglobin has improved and stabilized. We will continue to monitor these while she is on the inpatient rehab unit. Unfortunately prior to admission the patient was not compliant with diabetes management and her hemoglobin A1c was 11.9. During her evaluation I spent roughly 60 minutes with the patient discussing diabetes management, wound care and management, wound healing with diabetes, amputation prognosis, desensitization for phantom pain, timeline and prognosis for obtaining a prosthetic limb and the therapy required to start utilizing the prosthetic limb. We also discussed in detail the requirements for her starting on the acute rehab and the intensity of the program. Patient was agreeable and looking forward to starting so that she could improve and return home. Previously the patient was living in a hotel alone, she will be going back to live with family after discharge. In total, greater than 75 minutes was invested in patient care today with greater than 50% of that time utilize counseling and coordinating care. After the patient was medically stabilized she was transferred for participation in acute inpatient intensive rehabilitation program. Interval History: Patient is participating in therapy and making progress. Taking rest breaks as needed. +BM, incontinent and wears adult briefs at home. Denies uncontrolled pain, palpitations, dyspnea, cough, N/V, or joint pain. Patient is now opting to go to retirement facility, awaiting authorization. No acute events over the weekend Left BKA: Continue to monitor, clean dry and intact currently. No signs of wound dehiscence or infection. Will need to follow-up with surgeon for staple removal Right foot wound: Continue to change dressing daily and monitor for any signs of worsening infection. Continue carlo Louiseugh decreasing. Wound care nurses not available currently Diabetes: Patient tolerating low-dose of Lantus, have reduced sliding scale insulin. Discussed diabetes and importance of checking her skin for wounds going forward and adhering to a controlled carbohydrate and insulin regimen. A1c at admission was 11.9. A.M. checks have been below 90 for the most part. Continue to monitor and adjust as needed. Glucose levels are starting to creep up, uncertain if this is due to patient's food choices. Continue low-dose metformin and monitor, patient seems to be refusing this. Hypertension: Continue metoprolol, blood pressure is variable. We will continue to monitor and adjust if needed. Volume depletion: Gentle IV fluids with good results. Encouraged the patient to continue drinking plenty of water. Continue to encourage oral fluids, will monitor. Anemia, combined acute blood loss and chronic disease: Combination of chronic disease and acute blood loss. Labs reviewed from acute care side. B12 and folate both within normal limits. Hemoglobin stable Incontinence of bowel and bladder: Patient states that she has been utilizing an adult briefs for the past 6 months. ADL and mobility deficits: Continue working with therapy to improve patient's ability to perform mobility and ADLs as independently as possible. She is utilizing a sliding board transfer to the wheelchair and is able to mobilize herself in the wheelchair. Working on the ability to be able to perform a stand pivot transfer and hopefully will do that over the next couple of days followed by taking steps in the parallel bar and then with a rolling walker. Unable to ambulate currently. Working on transfers and improving. At this point patient will be wheelchair-bound at discharge. She is having a difficult time with standing and or taking any steps in the parallel bars. Preference would be that she go to a retirement facility however the patient does not want to do this and we will discharge home with assistance from family and home health. All records, vitals, labs and medications were reviewed. No other issues per patient, nursing or therapy. Objective - Exam Narrative Exam: MUSCULOSKELETAL SPECIALTY EXAM CONSTITUTIONAL: Well developed, well nourished, appropriately groomed RESPIRATORY: Clear to auscultation bilaterally, no increased work of breathing CARDIOVASCULAR: Regular Rate/ Rhythm, no swelling, edema or tenderness in BUE or BLE. All extremities warm. GI: + bowel sounds, soft, nondistended. INTEGUMENTARY: Wound on lateral and medial right foot, decreasing amount of slough on the lateral wound. Surgical wound clean dry and intact. Otherwise normal, no lesion, rash, masses or bruising noted in extremities. MUSCULOSKELETAL: Left BKA, otherwise BUE and BLE normal without defect, crepitus, subluxation, effusion, arthritic changes or TTP. BUE 4+/5, good ROM, with normal tone. BLE 4/5 good ROM, with normal tone NEURO: Sensation intact in all extremities. No tremor noted in 4 extremities. POSTURE and GAIT: Sitting posture good. Currently unable to ambulate. Able to transfer independently with sliding board. Able to supervisor data processing parallel bars but unable to clear her foot with attempted hopping PSYCH: Alert, oriented x3, affect appears normal. Insight appears intact, decreased carryover and safety awareness. - Constitutional Vitals: Vital Signs - 12hr 09/14/21 09/14/21 09/14/21 21:09 22:00 22:16 Temperature 97.9 F Pulse Rate 80 80 Respiratory 18 Rate Blood Pressure 137/62 O2 Sat by Pulse 96 97 Oximetry - Allied health notes Allied health notes reviewed: nursing, PT, OT - Labs CBC & Chem 7: 09/11/21 09:22 09/11/21 09:22 Labs: Laboratory Results - last 72 hr 09/12/21 09/12/21 09/12/21 12:00 15:47 21:01 POC Glucose 148 H 142 H 213 H 09/13/21 09/13/21 09/13/21 07:13 11:28 16:18 POC Glucose 109 H 142 H 121 H 09/13/21 09/14/21 09/14/21 20:24 07:45 11:41 POC Glucose 159 H 73 144 H 09/14/21 09/14/21 09/15/21 16:05 20:43 08:13 POC Glucose 127 H 206 H 87 Assessment and Plan Left BKA: Ampu-shield has been delivered by [employer]. Continue dressing changes every other day and monitor for any signs of increased drainage, infection or wound dehiscence. Counseled patient on prognosis and timeline for recovery as well as obtaining a prosthesis. Follow-up with surgeon for staple removal Diabetes: Patient continues on carb controlled diet and sliding scale insulin. Have discussed counseling with dietary choices. Have also discussed issues with wound healing and the importance of monitoring her right foot for any wounds and to have those treated as soon as possible if they should develop. Have started long-acting insulin and reduce the dose of the sliding scale. Will monitor and attempt to control her glucose as closely as possible. Doing better with long- acting insulin. Continue metformin and monitor, currently refusing Right foot wound, diabetic and traumatic in nature: Continue wound care with dressing changes daily, monitor for any signs of infection or need to start antibiotics. Have counseled the patient to closely monitor this wound as well as any future wounds due to the high risk of her obtaining another amputation with diabetes and new foot wound. Santyl started for slough on the lateral wound, amount of slough decreasing. Wound care nurse not available currently Hypertension: New diagnosis, continue low-dose metoprolol and monitor for improvement, dose increased on 09/10. Will attempt to avoid hypotension. Goal less than 140/90. Phantom sensation: Continue working with desensitization, will refrain from starting gabapentin currently as the patient is not having acute neuropathic pain but will look to utilize that if needed in the future. Anemia: Appears to be anemia of chronic disease and acute blood loss mixed. She is normocytic. Labs from the acute care side on 08/25 show that the iron is within normal limits at 51, TIBC slightly low at 218 and ferritin elevated at 436. Vitamin B12 and folate within normal limits. Volume depletion: Responded well to 1 L of gentle IV fluids. We will continue to monitor the patient's intake and look to repeat IV fluids if needed. Did encourage her to continue drinking water. Goiter?: Patient states that she has had this worked up in the past and was told to just monitor. We will check a thyroid panel next lab draw. Patient should follow-up with endocrinology as outpatient ADL dysfunction: OT will work on improving ability to perform ADLs (including assistive devices) to increase independence and decrease caregiver burden and improve functional transfers and mobility training. Difficulty walking: PT will work on gait training and proper use of assistive devices and advance as appropriate to use of stairs and outside ambulation on uneven surfaces utilizing a rolling walker and safety awareness due to left BKA. Unsteadiness on feet: PT will work on improving static and dynamic sitting and standing balance as well as proper use of assistive devices to decrease risk of falls, have discussed with patient the likelihood that she will fall due to forgetting that she has a left BKA and getting up . Abnormality of gait: PT will work to improve safety and efficiency of gait through neuromotor training and gait training along with instruction on proper use of assistive devices. Will need further training once patient receives left prosthesis Muscle weakness: PT & OT will work on strengthening exercises to improve func tional strength including mixture of closed and open kinetic chain exercises. Debility: PT & OT will work on improving overall functional status to improve participation with ADLs, mobility and social involvement. Fatigue: PT & OT will work on improving endurance through aerobic exercises and therapeutic activity while monitoring patients tolerance for activity and vital signs as needed. DVT ppx: Lovenox Pain: Continue physical modalities in therapy and pain medications as needed to achieve functional pain control. Sleep: Monitor and address as needed. Bowel: Monitor and address as needed. Appetite: Monitor and address as needed. Discharge planning: Pending therapy progress and care plan meeting. Will continue discussion with therapy team, SW, patient and family. Patient will discharge home on Wednesday. My preference would be for her to go to retirement facility so that she can continue rehabilitation as she is not able to take steps currently, however the patient may or may not have coverage for retirement facility and she does not want to go. We will discharge her home with home health as well as assistance from family. Have discussed the issues with the patient on numerous occasions including today about my concerns with her not having continued supervision Restrictions/ Precautions: Falls, wound complication WB status: FWB on RLE, NWB on LLE Functional Hx: ADLs: Independent but went downhill recently with the infection Cognition: Independent Mobility: No AD previously but was crawling around with the infection Barriers to Discharge: Decreased mobility and ability to perform self care, balance deficits, weakness Estimated Length of Stay: 10-14 days Discharge Destination: Home with family Patient has undergone a left BKA and thus cannot safely stand to perform MR ADLs safely with any device. She will need a wheelchair at discharge. She is capable of utilizing the wheelchair and has expressed no contraindications to utilizing the wheelchair in the home environment. We will continue to work with her to improve her ability to mobilize herself in the wheelchair in order to provide her greater independence with performing her MRADLs. Due to the patient's high risk for fall and her decreased ability to perform stand pivot transfers, will also need to provide a sliding board for transfers and a drop arm bedside commode.
[2021-09-15 08:36] LABS: Hematocrit 25.5 % (30.3-42.9); Hemoglobin 8.2 gm/dl (10.1-14.3); Mean Corpuscular HGB Conc 32 % (30-34); Mean Corpuscular Volume 90 fl (79-97); Platelet Count 222 K/mm3 (140-440); Red Blood Count 2.83 M/mm3 (3.65-5.03)
[2021-09-15 08:41] LABS: Red Cell Distribution Width 20.3 % (13.2-15.2)
[2021-09-15 08:57] LABS: Blood Urea Nitrogen 23 mg/dL (7-17); Calcium 8.7 mg/dL (8.4-10.2); Hemolysis Index 2
[2021-09-15 09:05] LABS: BUN/Creatinine Ratio 38
[2021-09-15 09:10] LABS: Free T4 (Free Thyroxine) 0.84 ng/dL (0.76-1.46)
[2021-09-15] MEDS: INSULIN LISPRO 100 UNIT/ML SUB-Q SCH ×4 (09:17→22:21)
[2021-09-15] MEDS: ENOXAPARIN 40 MG/0.4 ML INJ SUB-Q SCH (09:17)
[2021-09-15] MEDS: metFORMIN 500 MG TAB PO SCH ×2 (09:18→19:04)
[2021-09-15] MEDS: METOPROLOL TARTRATE 25 MG TAB PO SCH ×2 (09:18→22:20)
[2021-09-15] MEDS: FAMOTIDINE 20 MG TAB PO SCH (09:19)
[2021-09-15] MEDS: INSULIN GLARGINE 100 UNITS/ML SUB-Q SCH (22:21)
[2021-09-16] MEDS: INSULIN LISPRO 100 UNIT/ML SUB-Q SCH (09:03)
[2021-09-16] MEDS: metFORMIN 500 MG TAB PO SCH (09:09)
[2021-09-16] MEDS: FAMOTIDINE 20 MG TAB PO SCH (09:09)
[2021-09-16] MEDS: ENOXAPARIN 40 MG/0.4 ML INJ SUB-Q SCH (09:09)
[2021-09-16] MEDS: METOPROLOL TARTRATE 25 MG TAB PO SCH (09:09)
--- NOTE | 2021-09-16 11:55 | Discharge Summary ---
Providers - Providers Date of Admission: 08/29/21 22:24 Date of discharge: 09/16/21 Attending physician: SAMUEL CURRY III, MD 08/29/21 16:21 Occupational Therapy Evaluate and Treat [CONS] Routine Comment: Reason For Exam: ADL dysfunction Physical Therapy Evaluation and Treat [CONS] Routine Comment: Reason For Exam: Mobility Dysfunction 08/29/21 16:33 Consult to Case Management [CONS] Routine Services Needed at Discharge: Home Health Services Notified:: patient case coordinator 08/29/21 16:34 Consult to Dietitian/Nutrition [CONS] Routine Physician Instructions: Reason For Exam: Reason for Consult: Diet education 09/03/21 07:24 Consult to Wound/ET Nurse [CONS] Routine Reason For Exam: wound eval 09/03/21 07:36 Consult to Social Psychologist [CONS] Routine Reason For Exam: L BKA - Need ampu-shield and follow for prothesis Primary care physician: [employer] Hospitalization Reason for admission: L BKA Condition: Fair Hospital course: 61-year-old female who presented with a diabetic left foot infection which was blistered and having purulent discharge. Patient was admitted and worked up. 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 Dov Mercado. Antibiotics were started. On 08/20 she underwent a definitive left below the knee amputation with Dr. Dov Mercado. Antibiotics were continued for 3 days post BKA per infectious disease. Her hemoglobin dropped to 5.5 and she was transfused 2 units of packed red blood cells. Hemoglobin is currently at 8.1. Couple days ago prior to admission to rehab her WBCs were elevated at 12.2 which was significantly increased from prior. She also had a slight fever. Recheck of labs prior to admission to rehab show that WBCs have normalized and she has not had another episode of fever. Hemoglobin has improved and stabilized. We will continue to monitor these while she is on the inpatient rehab unit. Unfo rtunately prior to admission the patient was not compliant with diabetes management and her hemoglobin A1c was 11.9. During her evaluation I spent roughly 60 minutes with the patient discussing diabetes management, wound care and management, wound healing with diabetes, amputation prognosis, desensitization for phantom pain, timeline and prognosis for obtaining a prosthetic limb and the therapy required to start utilizing the prosthetic limb. We also discussed in detail the requirements for her starting on the acute rehab and the intensity of the program. Patient was agreeable and looking f orward to starting so that she could improve and return home. Previously the patient was living in a hotel alone, she will be going back to live with family after discharge. In total, greater than 75 minutes was invested in patient care today with greater than 50% of that time utilize counseling and coordinating care. After the patient was medically stabilized she was transferred for participation in acute inpatient intensive rehabilitation program. Left BKA: Ampu-shield has been delivered by [employer]. Continue dressing changes every other day and monitor for any signs of increased drainage, infection or wound dehiscence. Counseled patient on prognosis and timeline for recovery as well as obtaining a prosthesis. Follow-up with surgeon for staple removal Diabetes: Patient continues on carb controlled diet and sliding scale insulin. Have discussed counseling with dietary choices. Have also discussed issues with wound healing and the importance of monitoring her right foot for any wounds and to have those treated as soon as possible if they should develop. Have started long-acting insulin and reduce the dose of the sliding scale. Will monitor and attempt to control her glucose as closely as possible. Doing better with long-acting insulin. Continue metformin and monitor. Will need to check glucose values at home and follow-up with PCP for further adjustment of medications, may be able to transition to all oral medications depending on dietary habits at home. Prescription written for glucometer and supplies Right foot wound, diabetic and traumatic in nature: Continue wound care with dressing changes daily, monitor for any signs of infection or need to start antibiotics. Have counseled the patient to closely monitor this wound as well as any future wounds due to the high risk of her obtaining another amputation with diabetes and new foot wound. Santyl started for slough on the lateral wound, amount of slough decreasing. Wound care nurse not available currently. Have ordered wound care for home health Hypertension: New diagnosis, continue low-dose metoprolol and monitor for improvement, dose increased on 09/10. Will attempt to avoid hypotension. Goal less than 140/90. Blood pressure seems to be fairly stable on current dose of metoprolol Phantom sensation: Continue working with desensitization, will refrain from starting gabapentin currently as the patient is not having acute neuropathic pain but will look to utilize that if needed in the future. Anemia: Appears to be anemia of chronic disease and acute blood loss mixed. She is normocytic. Labs from the acute care side on 08/25 show that the iron is within normal limits at 51, TIBC slightly low at 218 and ferritin elevated at 436. Vitamin B12 and folate within normal limits. On 09/15 hemoglobin was 8.2 and stable. Volume depletion: Responded well to 1 L of gentle IV fluids. We will continue to monitor the patient's intake and look to repeat IV fluids if needed. Did encourage her to continue drinking water. BMP on 09/15 unremarkable for the most part, BUN slightly elevated at 23 which has been stable Goiter?: Patient states that she has had this worked up in the past and was told to just monitor. Patient should follow-up with endocrinology as outpatient. TSH 1.420, free T4 0.84. As far as disposition, the therapist and myself all feel that the patient would be better served in a fdc facility for continued rehabilitation. She has plateaued while being with us however she does need more assistance than what she will will be able to get with her family members who are older than she is. Insurance unfortunately denied this request for transfer to fdc facility, I performed a peer to peer and was told that she was safe to go home from their perspective even though I disagreed and gave my reasoning. We are discharging the patient home with home health and family assistance in accordance with directives from the insurance company. Patient seems okay with going home. Disposition: HOME HEALTH CARE SERVICE Final Discharge Diagnosis (Prints w/discharge instructions): Left BKA, right foot wound, diabetes, hypertension Time spent for discharge: >36 mins Core Measure Documentation - Palliative Care Palliative Care/ Comfort Measures: Not Applicable - Core Measures Any of the following diagnoses?: none Exam - Physical Exam Narrative exam: MUSCULOSKELETAL SPECIALTY EXAM CONSTITUTIONAL: Well developed, well nourished, appropriately groomed RESPIRATORY: Clear to auscultation bilaterally, no increased work of breathing CARDIOVASCULAR: Regular Rate/ Rhythm, no swelling, edema or tenderness in BUE or BLE. All extremities warm. GI: + bowel sounds, soft, nondistended. INTEGUMENTARY: Wound on lateral and medial right foot, decreasing amount of slough on the lateral wound. Surgical wound clean dry and intact. Otherwise normal, no lesion, rash, masses or bruising noted in extremities. MUSCULOSKELETAL: Left BKA, otherwise BUE and BLE normal without defect, crepitus, subluxation, effusion, arthritic changes or TTP. BUE 4+/5, good ROM, with normal tone. BLE 4/5 good ROM, with normal tone NEURO: Sensation intact in all extremities. POSTURE and GAIT: Sitting posture good. Currently unable to ambulate. Able to transfer indepe ndently with sliding board. Able to window unit air conditioning mechanic parallel bars but unable to clear her foot with attempted hopping PSYCH: Alert, oriented x3, affect appears normal. Insight appears intact, decreased car ryover and safety awareness. - Constitutional Vitals: Temp Pulse Resp BP Pulse Ox 98.3 F 77 18 143/72 99 09/15/21 20:44 09/15/21 22:20 09/15/21 20:44 09/15/21 20:44 09/15/21 22:00 Plan Activity: advance as tolerated, up only with assistance, fall precautions Weight Bearing Status: Non-Weight Bearing (Left lower extremity) Diet: diabetic Wound: change dressing (Daily), per wound nurse instructions (Santyl to right f oot wound) Special Instructions: record daily BP diary, record blood sugar diary, home health RN (PT, OT, wound care, nursing) Durable Medical Equipment Needed Upon Discharge: Wheelchair, Bedside Commode, other (Sliding board) Care Plan Goals: Patient will need to follow-up with primary care physician for further managemen t of hypertension, diabetes and right foot wounds. Referral to Dr Singh has been offered if needed. She will also need to follow-up with Dr. Mercado for left BKA and staple removal. She is being seen by [facility] for possibility of obtaining a prosthetic once her residual limb heals and dominick have been removed. She will need to follow-up with endocrinology or PCP for the goiter that she states has not been seen in a while. Thyroid panel was drawn and values are contained within the discharge summary. Home health care has been ordered fourth nursing, therapy and wound care. Patient may need to follow-up with wound care if right foot wound does not continue to heal as expected. Will need home health wound care to direct us or PCP on ongoing recovery Follow up with: PRIMARY CAREMD [Primary Care Provider] - 7 Days DOV MERCADO MD [Staff Physician] - 7 Days ADELFO SINGH MD [Staff Physician] - 7 Days Prescriptions: Insulin Glargine,Hum.rec.anlog [Basaglar Kwikpen U-100] 5 unit SQ HS #1 metFORMIN [Glucophage] 500 mg PO BIDDIAB #60 tablet Metoprolol [Lopressor TAB] 25 mg PO BID #30 tablet Famotidine [Pepcid] 20 mg PO QDAY #30 tablet Other Discharge Orders: Glucometer (Amb) Location: None Selected Glucometer supplies[Amb] Location: None Selected
[2021-09-16 12:01] VITALS: BP 148/59
== END 2021-09-16 14:00 | disposition home health service (06) | DRG 638 ==
LOC: UNDOADMIN 13:55 → 3A 13:55 → 4A 22:24
PROVIDERS: ADMIT Physical Medicine & Rehabilitation; ATTEND Physical Medicine & Rehabilitation
DX: E11.628 Type 2 diabetes mellitus with other skin complications (principal); D62 Acute posthemorrhagic anemia; R26.9 Unspecified abnormalities of gait and mobility; R53.81 Other malaise; E86.9 Volume depletion, unspecified; Z83.3 Family history of diabetes mellitus; Z82.49 Family history of ischemic heart disease and other diseases of the circulatory system; R53.83 Other fatigue; Z82.3 Family history of stroke
CPT/HCPCS: 36415; 80048; 80053; 82607; 82747; 82962; 84439; 84443; 85025; 85027; G0378; Q9967; J1650; J1815; J7030